=== PATIENT | male | born 1970 | race Hispanic/Latino ===

== ENCOUNTER 2016-10-26 00:18 | Emergency (ER) | payer OTHER ==
--- NOTE | 2016-10-26 02:20 | Ultrasound Report ---
FINAL REPORT PROCEDURE: US TESTICULAR DOPPLER COMP TECHNIQUE: Real-time aclabrese-scale and color flow Doppler sonography in multiple planes of the scrotum, testicles, and epididymes was performed. Velocity spectral waveform analysis Doppler imaging of the arterial inflow and venous outflow of the testicles was performed with image documentation. CPT 98207 and 11551 HISTORY: PAIN COMPARISON: No prior studies are available for comparison. FINDINGS: RIGHT TESTICLE: Size: 4.3 x 1.8 x 2.9 cm . Appearance: Normal size and echotexture . Arterial blood flow: Normal spectral waveforms, flow velocities and color flow images.. Venous blood flow: Normal spectral waveforms and color flow images. Right epididymis: Normal size and echotexture . Hydrocele: None . LEFT TESTICLE Size: 4 x 2.2 x 2.6 cm . Appearance: Normal size and echotexture . Arterial blood flow: Normal spectral waveforms, flow velocities and color flow images.. Venous blood flow: Normal spectral waveforms and color flow images. Leftepididymis: Normal size and echotexture . Hydrocele: None . IMPRESSION: Normal Examination
[2016-10-26 02:57] LABS: Hematocrit 44.6 % (35.5-45.6); Mean Corpuscular HGB Conc 34 % (32-34); Mean Corpuscular Hemoglobin 29 pg (28-32); Mean Corpuscular Volume 87 fl (84-94); Platelet Count 247 K/mm3 (140-440); Red Blood Count 5.12 M/mm3 (3.65-5.03); Red Cell Distribution Width 14.5 % (13.2-15.2); White Blood Count 11.9 K/mm3 (4.5-11.0)
[2016-10-26 03:53] LABS: Alanine Aminotransferase 20 units/L (7-56); Albumin 4.5 g/dL (3.9-5); Albumin/Globulin Ratio 1.6 %; Alkaline Phosphatase 72 units/L (35-129); Anion Gap 19 mmol/L; BUN/Creatinine Ratio 21.66; Bilirubin,Total 0.4 mg/dL (0.1-1.2); Blood Urea Nitrogen 13 mg/dL (9-20); Calcium 9.7 mg/dL (8.4-10.2); Carbon Dioxide 25 mmol/L (22-30); Chloride 98.7 mmol/L (98-107); Glucose 100 mg/dL (75-100); Lipase 16 units/L (13-60); Potassium 3.8 mmol/L (3.6-5.0); Sodium 139 mmol/L (137-145); Total Protein 7.3 g/dL (6.3-8.2)
[2016-10-26 06:01] LABS: Bacteria,Urine 1+ /HPF (Negative); Bilirubin,Urine NEG (Negative); Blood,Urine LG (Negative); Ketones,Urine NEG (Negative); Leukocyte Esterase,Urine NEG (Negative); Mucus,Urine 3+ /HPF; Nitrite,Urine NEG (Negative); Protein,Urine <15 mg/dL mg/dL (Negative); RBC,Urine > 182.0 /HPF (0.0-6.0); Urobilinogen,Urine < 2.0 mg/dL (<2.0)
[2016-10-26] MEDS ORDERED: DILAUDID ONE (09:58)
[2016-10-26] MEDS ORDERED: ZOFRAN IV ONE (10:16)
[2016-10-26] MEDS ORDERED: NACL 0.9% 1000 ML 1,000 ML IV ONE (10:16)
[2016-10-26] MEDS ORDERED: DILAUDID IV ONE (10:16)
--- NOTE | 2016-10-26 10:17 | Emergency Department Report ---
ED General Adult HPI - General Chief complaint: Urogenital-Male Stated complaint: BLOOD IN URINE/VOMITING Time Seen by Provider: 10/26/16 10:02 Source: patient, RN notes reviewed, old records reviewed Mode of arrival: Ambulatory Limitations: No Limitations - History of Present Illness Initial comments: This is a 46-year-old male. He is previously unknown to me. His local urologist is Dr. Jackson. The patient reports having a mechanical fall on September 14. Since then, the patient has been experiencing gross hematuria, slow urinary stream, straining to urinate, right-sided testicular pain, right flank pain, and erectile dysfunction. There is no extremity weakness. There is no extremity numbness. There is no dysuria. There is no history of UTI. Patient has had extensive outpatient workup as per documentation from his outpatient urology specialist. The patient recently had a retrograde pyelogram , which was found to be unremarkable, and also had a recent cystoscopy. As per documentation from his urologist, patient had essentially a negative digital rectal examination. Head and negative CT workup, had an ultrasound that demonstrated no hydronephrosis, was found to have back pain that was deemed to be more sacral/ hip than kidney, and patient was instructed to follow with orthopedic/ occupational therapy. Patient's pain has been constant since September. It increases with palpation or range of motion, and it decreases with rest. -: Gradual Location: abdomen, pelvis, genitals Quality: aching Consistency: intermittent Improves with: movement, rest Associated Symptoms: nausea/vomiting. denies: confusion, chest pain, cough, diaphoresis, fever/chills, headaches, loss of appetite, malaise, shortness of breath, syncope - Related Data Home Medications Medication Instructions Recorded Confirmed Last Taken Ciprofloxacin HCl [Ciprofloxacin 500 mg PO BID 10/16/16 10/21/16 10/18/16 TAB] HYDROcodone/ACETAMINOPHEN 1 tab PO TID PRN 10/16/16 10/21/16 10/20/16 [Hydrocodon-Acetaminophen 5-325] Mesalamine [Pentasa] 500 mg PO TID 10/16/16 10/21/16 2 Weeks Ago Prednisone [Prednisone] 1 tab PO DAILY 10/16/16 10/21/16 2 Weeks Ago traMADol [Ultram] 50 mg PO Q6HR PRN 10/16/16 10/21/16 1 Month Ago Previous Rx's Medication Instructions Recorded Last Taken Type HYDROcodone/APAP 5-325 [[place] 1 each PO Q4HR PRN #15 tablet 10/21/16 Unknown Rx 5-325 mg TAB] Sulfamethoxazole/Trimethoprim 1 each PO BID #6 tablet 10/21/16 Unknown Rx [Bactrim DS TAB] Ketorolac [Toradol] 10 mg PO Q6H PRN #20 tablet 10/26/16 Unknown Rx Ondansetron [Zofran Odt] 4 mg PO QID PRN #20 tab.rapdis 10/26/16 Unknown Rx oxyCODONE [Roxicodone] 5 mg PO Q6HR PRN #15 tablet 10/26/16 Unknown Rx Allergies Allergy/AdvReac Type Severity Reaction Status Date / Time gabapentin Allergy Hives Verified 10/16/16 10:46 Iodinated Contrast Media - Allergy Anaphylaxis Verified 10/18/16 10:01 IV Dye Penicillins Allergy Anaphylaxis Verified 10/16/16 10:45 procaine HCl [From Novocain] Allergy Anaphylaxis Verified 10/16/16 10:45 BEE STINGS Allergy Anaphylaxis Uncoded 10/16/16 10:46 ED Review of Systems ROS: Stated complaint: BLOOD IN URINE/VOMITING Other details as noted in HPI Constitutional: denies: fever Eyes: denies: eye discharge ENT: denies: epistaxis Respiratory: denies: cough Cardiovascular: denies: chest pain Gastrointestinal: abdominal pain Genitourinary: testicular pain Musculoskeletal: as per HPI Skin: denies: lesions Neurological: denies: headache Psychiatric: anxiety ED Past Medical Hx - Past Medical History Previous Medical History?: Yes Hx Hypertension: No Hx Heart Attack/AMI: (DENIES) Hx GERD: Yes Hx Liver Disease: No Hx Renal Disease: No Hx Seizures: No Hx HIV: No Additional medical history: CHRONS - Surgical History Past Surgical History?: Yes Hx Coronary Stent: Yes (2008) Hx Cholecystectomy: Yes - Social History Smoking Status: Current Every Day Smoker Substance Use Type: None - Medications Home Medications: Home Medications Medication Instructions Recorded Confirmed Last Taken Type Ciprofloxacin HCl [Ciprofloxacin 500 mg PO BID 10/16/16 10/21/16 10/18/16 History TAB] HYDROcodone/ACETAMINOPHEN 1 tab PO TID PRN 10/16/16 10/21/16 10/20/16 History [Hydrocodon-Acetaminophen 5-325] Mesalamine [Pentasa] 500 mg PO TID 10/16/16 10/21/16 2 Weeks Ago History Prednisone [Prednisone] 1 tab PO DAILY 10/16/16 10/21/16 2 Weeks Ago History traMADol [Ultram] 50 mg PO Q6HR PRN 10/16/16 10/21/16 1 Month Ago History HYDROcodone/APAP 5-325 [[place] 1 each PO Q4HR PRN #15 tablet 10/21/16 Unknown Rx 5-325 mg TAB] Sulfamethoxazole/Trimethoprim 1 each PO BID #6 tablet 10/21/16 Unknown Rx [Bactrim DS TAB] Ketorolac [Toradol] 10 mg PO Q6H PRN #20 tablet 10/26/16 Unknown Rx Ondansetron [Zofran Odt] 4 mg PO QID PRN #20 tab.rapdis 10/26/16 Unknown Rx oxyCODONE [Roxicodone] 5 mg PO Q6HR PRN #15 tablet 10/26/16 Unknown Rx ED Physical Exam - General Limitations: No Limitations General appearance: alert, in no apparent distress - Head Head exam: Present: atraumatic, normocephalic - Eye Eye exam: Present: normal appearance, EOMI. Absent: nystagmus - ENT ENT exam: Present: normal exam, normal orophraynx, mucous membranes moist, normal external ear exam - Neck Neck exam: Present: normal inspection, full ROM. Absent: tenderness, meningismus - Respiratory Respiratory exam: Present: normal lung sounds bilaterally. Absent: respiratory distress, wheezes, rales, rhonchi, stridor, decreased breath sounds - Cardiovascular Cardiovascular Exam: Present: regular rate, normal rhythm. Absent: bradycardia , tachycardia, irregular rhythm, systolic murmur, diastolic murmur, rubs, gallop - GI/Abdominal GI/Abdominal exam: Present: soft, tenderness (rlq, roght flank tenderness), normal bowel sounds. Absent: distended, guarding, rebound, rigid, pulsatile mass - Rectal Rectal exam: Present: deferred - exam: Present: normal inspection, testicular tenderness, other (there is normal testicular lie bilaterally. There is intact cremasteric reflex bilaterally. There is no testicular swelling. There is right-sided testicular tenderness.) External exam: Present: normal external exam, other (escorted by DELVIS Portillo) - Extremities Exam Extremities exam: Present: normal inspection, full ROM, normal capillary refill. Absent: tenderness, pedal edema, joint swelling, calf tenderness - Back Exam Back exam: Present: normal inspection, full ROM. Absent: tenderness, CVA tenderness (R), CVA tenderness (L), muscle spasm, paraspinal tenderness, vertebral tenderness - Neurological Exam Neurological exam: Present: alert, oriented X3, normal gait, other (Extraocular movements intact. Tongue midline. No facial droop. Facial sensation intact to light touch in the V1, V2, V3 distribution bilaterally. 5 and 5 strength in 4 extremities.. Sensation is intact to light touch in 4 extremities.). Absent : motor sensory deficit - Psychiatric Psychiatric exam: Present: normal affect, normal mood - Skin Skin exam: Present: warm, dry, intact, normal color. Absent: rash ED Course Vital Signs 10/26/16 10/26/16 10/26/16 00:58 09:00 10:41 Temperature 98.1 F Pulse Rate 88 115 H Respiratory 20 18 16 Rate Blood Pressure 160/120 Blood Pressure 141/90 [Left] O2 Sat by Pulse 99 99 Oximetry 10/26/16 10/26/16 10/26/16 11:10 11:11 11:30 Temperature Pulse Rate 84 Respiratory 16 16 16 Rate Blood Pressure Blood Pressure 124/76 [Left] O2 Sat by Pulse 99 98 Oximetry 10/26/16 12:13 Temperature Pulse Rate 74 Respiratory 16 Rate Blood Pressure Blood Pressure 131/75 [Left] O2 Sat by Pulse 98 Oximetry - Reevaluation(s) Reevaluation #1: 10/26/16 11:39 Differential diagnosis: Malignancy, urinary tract infection, referred nerve pain , appendicitis Assessment and plan: 46-year-old male with persistent hematuria, groin pain, testicular pain, abdominal pain since a fall on September 14. He has had an extensive outpatient urologic workup. He reports a history of negative CT of abdomen and pelvis. A testicular ultrasound performed in the ER demonstrated no acute abnormality that would require emergent surgical intervention. A repeat noncontrast CAT scan of the abdomen and pelvis demonstrated no evidence of fracture, normal appearing appendix, and unremarkable anatomy. His laboratory studies were reviewed, and were essentially unremarkable, his urinalysis was not consistent/diagnostic of urinary tract infection. The patient's pain was treated aggressively. He walks with a steady gait, and has no clinical indication of epidural compression syndrome. The case was discussed with the covering urology specialist, Dr. Lyles, who recommended that the patient follow up with outpatient orthopedics/physical therapy for evaluation for possible referred nerve pain, as he stated that the patient's symptomatology was suggestive of an ilioinguinal nerve pathology. He also recommended the patient discontinue the consumption of caffeine, alcohol , and spicy foods. The laboratory studies and diagnostics were discussed with the covering urologist, who indicated that the patient could follow up routinely with his outpatient urologist for further management of his hematuria, and urinary hesitancy. ED Medical Decision Making - Lab Data Result diagrams: 10/26/16 02:43 10/26/16 02:43 Vital Signs 10/26/16 10/26/16 10/26/16 00:58 09:00 10:41 Temperature 98.1 F Pulse Rate 88 115 H Respiratory 20 18 16 Rate Blood Pressure 160/120 Blood Pressure 141/90 [Left] O2 Sat by Pulse 99 99 Oximetry 10/26/16 11:10 Temperature Pulse Rate Respiratory 16 Rate Blood Pressure Blood Pressure [Left] O2 Sat by Pulse 99 Oximetry Lab Results 10/26/16 10/26/16 10/26/16 Range/Units 02:43 02:43 Unknown WBC 11.9 H (4.5-11.0) K/mm3 RBC 5.12 H (3.65-5.03) M/mm3 Hgb 15.0 (11.8-15.2) gm/dl Hct 44.6 (35.5-45.6) % MCV 87 (84-94) fl MCH 29 (28-32) pg MCHC 34 (32-34) % RDW 14.5 (13.2-15.2) % Plt Count 247 (140-440) K/mm3 Lymph % (Auto) 29.7 (13.4-35.0) % [place] % (Auto) 5.5 (0.0-7.3) % Eos % (Auto) 2.0 (0.0-4.3) % Baso % (Auto) 1.0 (0.0-1.8) % Lymph # 3.5 (1.2-5.4) K/mm3 [place] # 0.7 (0.0-0.8) K/mm3 Eos # 0.2 (0.0-0.4) K/mm3 Baso # 0.1 (0.0-0.1) K/mm3 Seg Neutrophils % 61.8 (40.0-70.0) % Seg Neutrophils # 7.4 (1.8-7.7) K/mm3 Sodium 139 (137-145) mmol/L Potassium 3.8 (3.6-5.0) mmol/L Chloride 98.7 (98-107) mmol/L Carbon Dioxide 25 (22-30) mmol/L Anion Gap 19 mmol/L BUN 13 (9-20) mg/dL Creatinine 0.6 L (0.8-1.5) mg/dL Estimated GFR > 60 ml/min BUN/Creatinine Ratio 21.66 % Glucose 100 (75-100) mg/dL Calcium 9.7 (8.4-10.2) mg/dL Total Bilirubin 0.4 (0.1-1.2) mg/dL AST 14 (5-40) units/L ALT 20 (7-56) units/L Alkaline Phosphatase 72 (35-129) units/L Total Protein 7.3 (6.3-8.2) g/dL Albumin 4.5 (3.9-5) g/dL Albumin/Globulin Ratio 1.6 % Lipase 16 (13-60) units/L Urine Color Yellow (Yellow) Urine Turbidity Clear (Clear) Urine pH 6.0 (5.0-7.0) Ur Specific [place] 1.024 (1.003-1.030) Urine Protein <15 mg/dl (Negative) mg/dL Urine Glucose (UA) Neg (Negative) mg/dL Urine Ketones Neg (Negative) mg/dL Urine Blood Lg (Negative) Urine Nitrite Neg (Negative) Urine Bilirubin Neg (Negative) Urine Urobilinogen < 2.0 (<2.0) mg/dL Ur Leukocyte Esterase Neg (Negative) Urine WBC (Auto) 2.0 (0.0-6.0) /HPF Urine RBC (Auto) > 182.0 (0.0-6.0) /HPF U Epithel Cells (Auto) < 1.0 (0-13.0) /HPF Urine Bacteria (Auto) 1+ (Negative) /HPF Urine Mucus 3+ /HPF - Radiology Data Radiology results: report reviewed, image reviewed Noncontrast CT scan of the abdomen and pelvis negative for acute disease. Testicular ultrasound negative for torsion/epididymitis/acute disease Critical care attestation.: If time is entered above; I have spent that time in minutes in the direct care of this critically ill patient, excluding procedure time. ED Disposition Clinical Impression: Hematuria, Flank pain Disposition: DISCHARGED TO HOME OR SELFCARE Is pt being admited?: No Does the pt Need Aspirin: No Condition: Good Instructions: Lumbar Radiculopathy (ED) Additional Instructions: Take the pain medication, nausea medication as directed. Rest and avoid heavy lifting. Laboratory studies indicated the presence of blood in the urine. Follow-up through urology specialist within the next week for this. Avoid consumption of caffeine, alcohol, spicy foods. I specifically discuss her case with the covering urology specialist. They indicate that your pain and symptoms to be coming from a pinched nerve. Therefore, I also recommend that you follow-up with either outpatient orthopedics, or occupational therapies/physical medicine for further evaluation for possible pinched nerve pain. Rest and avoid heavy lifting. Avoid strenuous physical activity. Return to the ER right away with new pain worse pain, migration of pain, intractable nausea or vomiting, inability to tolerate liquid feeds, extremity weakness, extremity numbness. Please note that her blood pressure was somewhat elevated. This should also be followed by a primary care doctor within the next month. Long-term complications of hypertension/elevated blood pressure include stroke, heart attack, disability, , paralysis, permanent loss of quality of life. Dr. Kirby is a local information systems specialist. Dr Jackson is your urology specialist Prescriptions: Ketorolac [Toradol] 10 mg PO Q6H PRN #20 tablet PRN Reason: Pain Ondansetron [Zofran Odt] 4 mg PO QID PRN #20 tab.rapdis PRN Reason: Nausea oxyCODONE [Roxicodone] 5 mg PO Q6HR PRN #15 tablet PRN Reason: Pain Referrals: PRIMARY CARE, [Primary Care Provider] - 3-5 Days COLBY PERDUE MD [Staff Physician] - 3-5 Days ATTILA KIRBY MD [Staff Physician] - 3-5 Days
--- NOTE | 2016-10-26 11:23 | Cat Scan Report ---
CT OF THE ABDOMEN AND PELVIS WITHOUT CONTRAST HISTORY: Abdominal pain. TECHNIQUE: Helical CT without contrast. Sagittal and coronal reformatted images. FINDINGS: Within the limits of a noncontrast exam, the abdominal and pelvic viscera are within normal limits. The liver, biliary system, pancreas, spleen, kidneys, adrenal glands and bladder are unremarkable. Cholecystectomy changes are noted. The bowel loops are normal caliber and wall thickness. Normal appendix. The aorta is normal caliber. No ascites, bulky adenopathy or inflammatory changes. The lung bases are clear. Normal heart size. No suspicious bony lesion. IMPRESSION: Unremarkable noncontrast CT of the abdomen and pelvis.
[2016-10-26 12:14] VITALS: BP 131/75
== END 2016-10-26 12:14 | disposition home or self-care (01) ==
LOC: ED 00:18
DX: R31.9 Hematuria, unspecified (principal); R10.31 Right lower quadrant pain; K21.9 Gastro-esophageal reflux disease without esophagitis; F17.200 Nicotine dependence, unspecified, uncomplicated; Z90.49 Acquired absence of other specified parts of digestive tract; Z88.0 Allergy status to penicillin; Z91.041 Radiographic dye allergy status; Z91.030 Bee allergy status; Z88.8 Allergy status to other drugs, medicaments and biological substances
CPT/HCPCS: 36415; 74176; 80053; 81001; 83690; 85025; 93975; 96361; 96374; 96375; 99284; J1170; J2405; J7030

== ENCOUNTER 2016-12-06 06:37 | Emergency (ER) | payer BC ==
[2016-12-06 07:43] LABS: Basophils % (Auto) 0.7 % (0.0-1.8); Eosinophils % (Auto) 2.9 % (0.0-4.3); Hematocrit 44.4 % (35.5-45.6); Hemoglobin 15.1 gm/dl (11.8-15.2); Mean Corpuscular HGB Conc 34 % (32-34); Mean Corpuscular Hemoglobin 30 pg (28-32); Mean Corpuscular Volume 88 fl (84-94); Platelet Count 220 K/mm3 (140-440); Red Blood Count 5.04 M/mm3 (3.65-5.03); Red Cell Distribution Width 14.8 % (13.2-15.2); White Blood Count 8.8 K/mm3 (4.5-11.0)
[2016-12-06 07:56] LABS: Alanine Aminotransferase 23 units/L (7-56); Albumin 4.4 g/dL (3.9-5); Albumin/Globulin Ratio 1.7 %; Alkaline Phosphatase 69 units/L (35-129); Anion Gap 17 mmol/L; BUN/Creatinine Ratio 28.33; Bilirubin,Total 0.4 mg/dL (0.1-1.2); Blood Urea Nitrogen 17 mg/dL (9-20); Calcium 9.7 mg/dL (8.4-10.2); Carbon Dioxide 25 mmol/L (22-30); Chloride 99.3 mmol/L (98-107); Glucose 98 mg/dL (75-100); Lipase 12 units/L (13-60); Potassium 4.2 mmol/L (3.6-5.0); Sodium 137 mmol/L (137-145)
[2016-12-06 09:56] LABS: Bilirubin,Urine NEG (Negative); Blood,Urine LG (Negative); Ketones,Urine NEG (Negative); Leukocyte Esterase,Urine NEG (Negative); Nitrite,Urine NEG (Negative); Protein,Urine <15 mg/dL mg/dL (Negative); Urobilinogen,Urine < 2.0 mg/dL (<2.0)
[2016-12-06 10:27] LABS: RBC,Urine > 182.0 /HPF (0.0-6.0)
[2016-12-06] MEDS ORDERED: MORPHINE IV ONE ×3 (18:14→21:57)
[2016-12-06] MEDS ORDERED: NACL 0.9% 1000 ML 1,000 ML IV ONE (18:14)
[2016-12-06] MEDS ORDERED: TORADOL IV ONE (18:14)
[2016-12-06] MEDS ORDERED: ZOFRAN IV ONE (18:14)
--- NOTE | 2016-12-06 18:45 | Emergency Department Report ---
ED Male HPI - General Chief complaint: Urogenital-Male Stated complaint: ABD PAIN/BLOOD IN URINE Time Seen by Provider: 12/06/16 18:07 Source: patient Mode of arrival: Ambulatory Limitations: No Limitations - History of Present Illness Initial comments: PT c/o 2 days of hematuria. PT states he also has abd pain and n/v. PT states that he threw up 4-5 times today. PT states he does not have hx of kidney stones but states that he had hematuria after a groin injury in September. PT states that bleeding gradually resolved on it's own. PT denies testicle pain or swelling or recent injury. MD Complaint: other (hematuria ) Onset/Timin -: Gradual, days(s) Location: abdomen Severity: severe Severity scale (0 -10): 10 Quality: sharp Consistency: constant Improves with: none Worsens with: palpation blood in urine, nausea/vomiting. denies: discharge, swelling, dysuria, fever - Related Data Home Medications Medication Instructions Recorded Confirmed Last Taken Ciprofloxacin HCl [Ciprofloxacin 500 mg PO BID 10/16/16 10/21/16 10/18/16 TAB] HYDROcodone/ACETAMINOPHEN 1 tab PO TID PRN 10/16/16 10/21/16 10/20/16 [Hydrocodon-Acetaminophen 5-325] Mesalamine [Pentasa] 500 mg PO TID 10/16/16 10/21/16 2 Weeks Ago Prednisone [Prednisone] 1 tab PO DAILY 10/16/16 10/21/16 2 Weeks Ago traMADol [Ultram] 50 mg PO Q6HR PRN 10/16/16 10/21/16 1 Month Ago Previous Rx's Medication Instructions Recorded Last Taken Type HYDROcodone/APAP 5-325 [[place] 1 each PO Q4HR PRN #15 tablet 10/21/16 Unknown Rx 5-325 mg TAB] Sulfamethoxazole/Trimethoprim 1 each PO BID #6 tablet 10/21/16 Unknown Rx [Bactrim DS TAB] Ketorolac [Toradol] 10 mg PO Q6H PRN #20 tablet 11/06/16 Unknown Rx Ondansetron [Zofran Odt] 4 mg PO QID PRN #20 tab.rapdis 11/06/16 Unknown Rx oxyCODONE [Roxicodone TAB] 5 mg PO Q6HR PRN #15 tablet 11/06/16 Unknown Rx Allergies Allergy/AdvReac Type Severity Reaction Status Date / Time gabapentin Allergy Hives Verified 11/06/16 13:50 Iodinated Contrast Media - Allergy Anaphylaxis Verified 11/06/16 13:50 IV Dye Penicillins Allergy Anaphylaxis Verified 11/06/16 13:50 procaine HCl [From Novocain] Allergy Anaphylaxis Verified 11/06/16 13:50 tramadol AdvReac Hives Verified 11/06/16 13:50 BEE STINGS Allergy Anaphylaxis Uncoded 11/06/16 13:50 ED Review of Systems ROS: Stated complaint: ABD PAIN/BLOOD IN URINE Other details as noted in HPI Comment: All other systems reviewed and negative Constitutional: denies: chills, fever Gastrointestinal: abdominal pain, nausea, vomiting. denies: diarrhea Genitourinary: hematuria. denies: urgency, dysuria, testicular pain, testicular mass Musculoskeletal: denies: back pain ED Past Medical Hx - Past Medical History Previous Medical History?: Yes Hx Hypertension: No Hx Heart Attack/AMI: (DENIES) Hx GERD: Yes Hx Liver Disease: No Hx Renal Disease: No Hx Seizures: No Hx HIV: No Additional medical history: CROHNS. CAD - Surgical History Past Surgical History?: Yes Hx Coronary Stent: Yes (X 2 2008) Hx Cholecystectomy: Yes Additional Surgical History: BILATERAL INGUINAL HERNIA. BILATERAL KNEE. RIGHT SHOULDER. TONSILLECTOMY - Social History Smoking Status: Current Every Day Smoker Substance Use Type: None - Medications Home Medications: Home Medications Medication Instructions Recorded Confirmed Last Taken Type Ciprofloxacin HCl [Ciprofloxacin 500 mg PO BID 10/16/16 10/21/16 10/18/16 History TAB] HYDROcodone/ACETAMINOPHEN 1 tab PO TID PRN 10/16/16 10/21/16 10/20/16 History [Hydrocodon-Acetaminophen 5-325] Mesalamine [Pentasa] 500 mg PO TID 10/16/16 10/21/16 2 Weeks Ago History Prednisone [Prednisone] 1 tab PO DAILY 10/16/16 10/21/16 2 Weeks Ago History traMADol [Ultram] 50 mg PO Q6HR PRN 10/16/16 10/21/16 1 Month Ago History HYDROcodone/APAP 5-325 [[place] 1 each PO Q4HR PRN #15 tablet 10/21/16 Unknown Rx 5-325 mg TAB] Sulfamethoxazole/Trimethoprim 1 each PO BID #6 tablet 10/21/16 Unknown Rx [Bactrim DS TAB] Ketorolac [Toradol] 10 mg PO Q6H PRN #20 tablet 11/06/16 Unknown Rx Ondansetron [Zofran Odt] 4 mg PO QID PRN #20 tab.rapdis 11/06/16 Unknown Rx oxyCODONE [Roxicodone TAB] 5 mg PO Q6HR PRN #15 tablet 11/06/16 Unknown Rx ED Physical Exam - General Limitations: No Limitations General appearance: alert, in no apparent distress - Head Head exam: Present: atraumatic, normocephalic - Eye Eye exam: Present: normal appearance. Absent: conjunctival injection - ENT ENT exam: Present: normal exam, normal external ear exam - Neck Neck exam: Present: normal inspection, full ROM. Absent: tenderness - Respiratory Respiratory exam: Present: normal lung sounds bilaterally. Absent: respiratory distress, wheezes - Cardiovascular Cardiovascular Exam: Present: regular rate, normal rhythm, normal heart sounds - GI/Abdominal GI/Abdominal exam: Present: soft, tenderness (RLQ ), normal bowel sounds - Extremities Exam Extremities exam: Present: normal inspection, full ROM - Back Exam Back exam: Present: normal inspection, full ROM. Absent: tenderness, CVA tenderness (R), CVA tenderness (L) - Neurological Exam Neurological exam: Present: alert, oriented X3 - Psychiatric Psychiatric exam: Present: normal affect, normal mood - Skin Skin exam: Present: warm, dry, intact ED Course Vital Signs 12/06/16 12/06/16 12/06/16 06:45 18:29 18:58 Temperature 97.8 F 98 F Pulse Rate 80 87 Respiratory 18 18 16 Rate Blood Pressure 168/113 163/81 [Right] O2 Sat by Pulse 100 99 Oximetry 12/06/16 19:00 Temperature Pulse Rate Respiratory 16 Rate Blood Pressure [Right] O2 Sat by Pulse Oximetry - Reevaluation(s) Reevaluation #1: 12/06/16 21:[address] results. PT states his pain is starting to return. PT aware he will need to follow up with PCP. - Pulse Oximetry Interpretation Digit-Finger Initial Pulse Oximetry Readin Actions Taken: none ED Medical Decision Making - Lab Data Result diagrams: 12/06/16 07:07 12/06/16 07:07 - Radiology Data Radiology results: report reviewed CT abd/pelvis : nap intra abd process indeterminate lytic lesion @ the R femoral neck - Differential Diagnosis appendicitis, uti, renal colic, Critical care attestation.: If time is entered above; I have spent that time in minutes in the direct care of this critically ill patient, excluding procedure time. ED Disposition Clinical Impression: Hematuria Nausea & vomiting Qualifiers: Vomiting type: unspecified Vomiting Intractability: non-intractable Qualified Code(s): R11.2 - Nausea with vomiting, unspecified Abdominal pain Qualifiers: Abdominal location: right lower quadrant Qualified Code(s): R10.31 - Right lower quadrant pain Disposition: DISCHARGED TO HOME OR SELFCARE Is pt being admited?: No Does the pt Need Aspirin: No Condition: Stable Instructions: Acute Abdominal Pain (ED), Abdominal Pain (ED), Flank Pain (ED), Acute Hematuria (ED), Hypertension (ED) Additional Instructions: Follow up with PCP for follow up of incidental findings on CT report and BP Recheck Call your Urologist on Friday Referrals: COLBY PERDUE MD [Primary Care Provider] - 3-5 Days JOSHUA VELASQUEZ MD [Staff Physician] - 3-5 Days Time of Disposition: 22:04
--- NOTE | 2016-12-06 20:41 | Cat Scan Report ---
FINAL REPORT PROCEDURE: CT ABDOMEN PELVIS WO CON TECHNIQUE: Computerized axial tomography of the abdomen and pelvis was performed without intravenous contrast. This study is performed without intravascular contrast material and its sensitivity for abdominal and pelvic pathology, including neoplasms, inflammation, abscess, free fluid, thrombosis, arterial dissection and infarction, is reduced compared with a contrast enhanced study. HISTORY: hematuria, rlq tenderness COMPARISON: Prior CT scan abdomen and pelvis 11/06/2016 FINDINGS: Lower Lung bonner: No significant abnormality seen. Upper Abdomen: The gallbladder is surgically absent. The unenhanced images of the liver are unremarkable. The pancreas in the spleen as well as the adrenal glands show no abnormalities. Kidneys, Ureters and Urinary bladder: No abnormalities are visualized. No masses, calculi or hydronephrosis are seen. The ureters are unremarkable. No ureteral calculi are seen. The urinary bladder is unremarkable. Retroperitoneum: Atherosclerotic changes are seen in the abdominal aorta. No aneurysm is visualized. Nonspecific subcentimeter lymph nodes are seen in the retroperitoneum. No pathologically enlarged lymph nodes are identified. Bowel: No focal bowel abnormalities are identified. There is no evidence of bowel obstruction ascites or free intraperitoneal gas. Normal-appearing appendix is seen in the right lower quadrant. There is mild nonspecific gas distention of a few loops of small bowel in the left upper quadrant. Reproductive organs: Prostate gland does not appear to be enlarged. Other: Small sclerotic density is visualized in the right side of the symphysis pubis and also in the left ilium medially consistent with bone islands. There is a lytic lesion visualize medially in the right femoral neck extending into the intratrochanteric region of the right hip. This measures 1.2 x 2.8 x 1.0 centimeters. This has a sclerotic margin. This does not appear to be expansile. Subchondral cyst formation is seen in the roof of the left acetabulum. IMPRESSION: No evidence of renal or ureteral calculi. There is no evidence of hydronephrosis. Prior cholecystectomy. Small bone islands are visualized. Indeterminate lytic lesion seen right femoral neck extending into the intratrochanteric region of the right hip. Please see above measurements. Etiology is uncertain. This has the appearance of a nonossifying fibroma how however would be very uncommon in this patient's age group. Consider chondromyxoid fibroma and previously treated infection could present this manner. Enchondroma and area of fibrous dysplasia could present this manner. Metastatic disease is felt to be unlikely although not entirely excluded. Correlation with physical exam recommended. If clinically indicated a nuclear medicine bone scan could be obtained to evaluate for abnormal metabolic activity...
[2016-12-06 22:26] VITALS: BP 167/97
== END 2016-12-06 22:25 | disposition home or self-care (01) ==
LOC: ED 06:37
DX: R10.31 Right lower quadrant pain (principal); R11.2 Nausea with vomiting, unspecified; R31.9 Hematuria, unspecified
CPT/HCPCS: 36415; 74176; 80053; 81001; 83690; 85025; 96361; 96374; 96375; 96376; 99284; J1885; J2270; J2405; J7030

== ENCOUNTER 2016-12-26 07:04 | Emergency (ER) | payer BC ==
[2016-12-26 08:02] LABS: Basophils % (Auto) 0.5 % (0.0-1.8); Eosinophils % (Auto) 2.2 % (0.0-4.3); Hematocrit 45.4 % (35.5-45.6); Hemoglobin 15.2 gm/dl (11.8-15.2); Mean Corpuscular HGB Conc 33 % (32-34); Mean Corpuscular Hemoglobin 30 pg (28-32); Mean Corpuscular Volume 90 fl (84-94); Platelet Count 210 K/mm3 (140-440); Red Blood Count 5.07 M/mm3 (3.65-5.03); Red Cell Distribution Width 14.8 % (13.2-15.2); White Blood Count 11.9 K/mm3 (4.5-11.0)
[2016-12-26 08:18] LABS: Alanine Aminotransferase 17 units/L (7-56); Albumin 4.4 g/dL (3.9-5); Albumin/Globulin Ratio 1.8 %; Alkaline Phosphatase 70 units/L (35-129); Anion Gap 15 mmol/L; BUN/Creatinine Ratio 21.42; Bilirubin,Total 0.3 mg/dL (0.1-1.2); Blood Urea Nitrogen 15 mg/dL (9-20); Calcium 9.9 mg/dL (8.4-10.2); Carbon Dioxide 29 mmol/L (22-30); Chloride 103.9 mmol/L (98-107); Glucose 84 mg/dL (75-100); Lipase 14 units/L (13-60); Potassium 4.2 mmol/L (3.6-5.0); Sodium 144 mmol/L (137-145); Total Protein 6.9 g/dL (6.3-8.2)
[2016-12-26 08:32] LABS: Bacteria,Urine 1+ /HPF (Negative); Bilirubin,Urine NEG (Negative); Blood,Urine LG (Negative); Ketones,Urine NEG (Negative); Leukocyte Esterase,Urine NEG (Negative); Mucus,Urine FEW /HPF; Nitrite,Urine NEG (Negative); Protein,Urine <15 mg/dL mg/dL (Negative); Urobilinogen,Urine < 2.0 mg/dL (<2.0)
[2016-12-26 08:51] LABS: RBC,Urine > 182.0 /HPF (0.0-6.0)
[2016-12-26] MEDS ORDERED: ZOFRAN IM ONE (16:14)
[2016-12-26] MEDS ORDERED: MORPHINE IM ONE (16:14)
--- NOTE | 2016-12-26 16:21 | Emergency Department Report ---
HPI - General Chief Complaint: Abdominal Pain Time Seen by Provider: 12/26/16 15:15 - HPI HPI: Room 9 The patient is a 46-year-old male presenting with a chief complaint of abdominal pain and hematuria. The patient states this suffered an injury 2016 when he fell through a floor striking his testicles on a bar. The patient had hematuria or abdominal pain at the time and was followed by urologist. Patient had multiple studies including cystoscopy without identifying the source of his hematuria. Patient states hematuria had resolved over is restarted approximately 3 days ago. Patient denies dysuria but states is difficulty urinating. Patient complains of right-sided abdominal pain. Patient is to nausea vomiting but denies any history of fever. The patient gives his pain a score of 11/10 Location: Right abdomen Duration: [see above] Quality: Pain/sharp Severity: 11/10 Modifying factors: [see above] Context: [see above] Mode of transportation: [not driving] ED Past Medical Hx - Past Medical History Hx Heart Attack/AMI: (DENIES) Hx GERD: Yes Hx Kidney Stones: Yes Additional medical history: CROHNS. CAD - Surgical History Hx Coronary Stent: Yes (X 2 2008) Hx Cholecystectomy: Yes Additional Surgical History: BILATERAL INGUINAL HERNIA. BILATERAL KNEE. RIGHT SHOULDER. TONSILLECTOMY. KIDNEY STONES - Family History Family history: no significant - Social History Smoking Status: Current Every Day Smoker (one pack per day) Substance Use Type: None - Medications Home Medications: Home Medications Medication Instructions Recorded Confirmed Last Taken Type Mesalamine [Pentasa] 500 mg PO BID 10/16/16 12/26/16 12/26/16 History Aspirin EC [Aspirin Enteric Coated 81 mg PO DAILY 12/26/16 12/26/16 12/26/16 History TAB] HYDROcodone/APAP 5-325 [[place] 1 - 2 each PO Q6HR PRN #14 tablet 12/26/16 Unknown Rx 5/325] Ibuprofen [Motrin 800 MG tab] 800 mg PO Q8HR PRN #20 tablet 12/26/16 Unknown Rx Sulfamethoxazole/Trimethoprim 1 each PO BID #14 tablet 12/26/16 Unknown Rx [Bactrim DS TAB] ED Review of Systems ROS: Stated complaint: ABD PAIN/BLOOD IN URINE Other details as noted in HPI Comment: All other systems reviewed and negative Constitutional: denies: chills, fever Eyes: denies: eye pain, eye discharge, vision change ENT: denies: ear pain, throat pain Respiratory: denies: cough, shortness of breath, wheezing Cardiovascular: denies: chest pain, palpitations Endocrine: no symptoms reported Gastrointestinal: abdominal pain, nausea, vomiting Genitourinary: hematuria Musculoskeletal: denies: back pain, joint swelling, arthralgia Skin: denies: rash, lesions Neurological: denies: headache, weakness, paresthesias Psychiatric: denies: anxiety, depression Hematological/Lymphatic: denies: easy bleeding, easy bruising Physical Exam - Physical Exam Vital Signs: Vital Signs 12/26/16 12/26/16 07:25 14:57 Temperature 97.9 F 97.8 F Pulse Rate 77 82 Respiratory 17 18 Rate Blood Pressure 156/98 Blood Pressure 132/82 [Left] O2 Sat by Pulse 100 99 Oximetry Physical Exam: GENERAL: The patient is well-developed well-nourished male lying on stretcher appearing to be in mild discomfort. [] HEENT: Normocephalic. Atraumatic. Extraocular motions are intact. Patient has moist mucous membranes. NECK: Supple. Trachea midline CHEST/LUNGS: Clear to auscultation. There is no respiratory distress noted. HEART/CARDIOVASCULAR: Regular. There is no tachycardia. There is no gallop rub or murmur. ABDOMEN: Abdomen is soft, tenderness to palpation in the suprapubic, right upper quadrant and right lower quadrant.. Patient has normal bowel sounds. There is no abdominal distention. SKIN: There is no rash. There is no edema. There is no diaphoresis. NEURO: The patient is awake, alert, and oriented. The patient is cooperative. The patient has normal speech MUSCULOSKELETAL: There is no CVA tenderness. There is no evidence of acute injury. ED Course Vital Signs 12/26/16 12/26/16 07:25 14:57 Temperature 97.9 F 97.8 F Pulse Rate 77 82 Respiratory 17 18 Rate Blood Pressure 156/98 Blood Pressure 132/82 [Left] O2 Sat by Pulse 100 99 Oximetry ED Medical Decision Making - Lab Data Result diagrams: 12/26/16 07:39 12/26/16 07:39 Laboratory Tests 12/26/16 12/26/16 12/26/16 07:39 07:39 08:12 WBC 11.9 H RBC 5.07 H Hgb 15.2 Hct 45.4 MCV 90 MCH 30 MCHC 33 RDW 14.8 Plt Count 210 Lymph % (Auto) 18.7 Oliver % (Auto) 5.9 Eos % (Auto) 2.2 Baso % (Auto) 0.5 Lymph # 2.2 Oliver # 0.7 Eos # 0.3 Baso # 0.1 Seg Neutrophils % 72.7 H Seg Neutrophils # 8.7 H Sodium 144 Potassium 4.2 Chloride 103.9 Carbon Dioxide 29 Anion Gap 15 BUN 15 Creatinine 0.7 L Estimated GFR > 60 BUN/Creatinine Ratio 21.42 Glucose 84 Calcium 9.9 Total Bilirubin 0.3 AST 12 ALT 17 Alkaline Phosphatase 70 Total Protein 6.9 Albumin 4.4 Albumin/Globulin Ratio 1.8 Lipase 14 Urine Color Yellow Urine Turbidity Clear Urine pH 6.0 Ur Specific [place] 1.017 Urine Protein <15 mg/dl Urine Glucose (UA) Neg Urine Ketones Neg Urine Blood Lg Urine Nitrite Neg Urine Bilirubin Neg Urine Urobilinogen < 2.0 Ur Leukocyte Esterase Neg Urine WBC (Auto) 15.0 H Urine RBC (Auto) > 182.0 Urine Bacteria (Auto) 1+ Urine Mucus Few - Radiology Data Radiology results: report reviewed (CT abdomen and pelvis), image reviewed (CT abdomen and pelvis) ED abdomen pelvis (read by radiologist) sees-oh evidence for renal calculi or renal traction. No acute inflammatory process identified in the right lower quadrant. Appendix is normal except for a few incidental tiny punctate appendicoliths. Submucosal fat identified in the ascending and transverse colon which can be seen with inflammatory bowel disease but is nonspecific - Differential Diagnosis renal colic, pyelonephritis, UTI, appendicitis Critical care attestation.: If time is entered above; I have spent that time in minutes in the direct care of this critically ill patient, excluding procedure time. ED Disposition Clinical Impression: Abdominal pain, Hematuria, UTI (urinary tract infection) Disposition: DISCHARGED TO HOME OR SELFCARE Is pt being admited?: No Does the pt Need Aspirin: No Condition: Stable Instructions: Urinary Tract Infection in Men (ED), Acute Hematuria (ED) Additional Instructions: Return to the emergency department immediately should you develop worsening symptoms, fever, inability to tolerate food or liquid or any other concerns. Prescriptions: HYDROcodone/APAP 5-325 [[place] 5/325] 1 - 2 each PO Q6HR PRN #14 tablet PRN Reason: Pain Ibuprofen [Motrin 800 MG tab] 800 mg PO Q8HR PRN #20 tablet PRN Reason: Pain Sulfamethoxazole/Trimethoprim [Bactrim DS TAB] 1 each PO BID #14 tablet Referrals: PRIMARY CARE, [Primary Care Provider] - 3-5 Days COLBY PERDUE MD [Staff Physician] - 3-5 Days Time of Disposition: 18:21
--- NOTE | 2016-12-26 17:28 | Cat Scan Report ---
FINAL REPORT EXAM: CT ABDOMEN PELVIS WO CON HISTORY: right lower abdominal pain, hematuria TECHNIQUE: Unenhanced stone protocol CT of the abdomen and pelvis at 2.5 millimeter axial increments. Coronal and sagittal reconstruction was also performed. PRIORS: CT a/P 12/06/2016 FINDINGS: There is no evidence for renal calculi or hydronephrosis. No evidence for ureteral or bladder calculus is seen. No evidence for renal or bladder mass is noted. Otherwise, within the limits of a noncontrast exam, the liver, spleen, pancreas, and adrenal glands are unremarkable. Gallbladder has been surgically removed. No evidence for retroperitoneal or pelvic lymphadenopathy is seen. The small bowel loops have normal caliber. No fluid collection, inflammatory change, or free air is seen within the abdomen or pelvis. Calcification of a normal sized aorta is present. The appendix is normal in size but contains incidental small hyperdense foci, probably tiny appendicoliths. No surrounding inflammation is seen. The ascending and proximal transverse colon demonstrate submucosal fat which is nonspecific but can be seen with inflammatory bowel disease. Within the pelvis, the prostate is normal. Images through the upper abdomen include the lung bases which are expanded and clear. Bony structures show 2 stable lytic foci in the medial intertrochanteric aspect of the right proximal femur and in the left superior acetabulum. These both have a well-defined sclerotic border suggesting a benign etiology. Two punctate sclerotic foci in the left ilium and right symphysis pubis are stable, probably incidental bone islands. IMPRESSION: 1. No evidence for renal calculi or renal obstruction. 2. No acute inflammatory process identified in the right lower quadrant. The appendix is normal except for a few incidental tiny punctate appendicoliths. 3. Submucosal fat identified in the ascending and transverse colon which can be seen with inflammatory bowel disease but is nonspecific
--- NOTE | 2016-12-26 17:33 | Admit Criteria Form ---
Admission Criteria Documentation: ABDOMINAL PAIN Clinical Indications for Admission to Inpatient Care (Place 'X' for any and all applicable criteria): Admission is indicated for ANY ONE of the following(1)(2)(3)(4)(5): [X ]I. Inpatient admission required rather than observation care (Also use Abdominal Pain: Observation Care, as appropriate) because of ANY ONE of the following: [X ]a) Severe pain requiring acute inpatient management [ ]b) Identification of etiology/finding that requires inpatient care (eg, aortic dissection, free air) [ ]c) Absent bowel sounds with complete ileus(6) [ ]d) Suspected toxic megacolon [ ]e) Severe electrolyte abnormalities requiring inpatient care [ ]f) High fever or infection requiring inpatient admission as indicated by ANY ONE of following(7)(8): [ ] i) Appropriate outpatient or observational care antimicrobial treatment unavailable, not effective, or not feasible [ ] ii) Documented bacteremia [ ] iii) Temperature > 104.9 degrees F (oral) [ ] iv) T >103.1 F (oral) or < 96.8 F(rectal) that does not respond to all emergency treatment measures [ ]g) Signs of intestinal obstruction [B] [ ]h) Hemodynamic instability [ ]i) IV fluid to replace significant ongoing losses (greater than 3 L/m2 per day) (12)(13) [ ]j) Percutaneous or open drainage (eg, abscess, biliary tract ) procedures [ ]k) Parenteral nutrition regimen that must be implemented on inpatient basis [ ]l) Other condition,treatment or monitoring requiring inpatient admission. [ ]II. Peritoneal signs present [ ]III. Surgery needed that cannot be performed on an ambulatory basis. [ ]IV. Evaluation requires patient to not eat or drink for extended period ( eg, more than 24 hours). [ ]V. Contraindications and/or Inappropriate clinical situations for Observational Care in patients with abdominal pain, when ANY ONE of the following is required: [ ]a) Thorough evaluation is required to prevent catastrophic events due to delays in diagnosing (e.g.Mesenteric ischemia) 1,3 [ ]b) Patient with severe pathology or with chronic symptoms unlikely to improve in the ED stay (3) [ ]. General contraindications and/or Inappropriate clinical situations for Observational Care in patients with abdominal pain, when ANY ONE of the following is required: [ ]a) Prediction of prolongation of LOS based on ANY ONE of the following may be considered as a contraindication for observational care 2, 3, 4, 5, 6, 7, 8, 9, 10, 11 [ ]i) Age > 65 yrs. [ ]ii) Patient arriving by ambulance [ ]iii) Patient with high acuity [ ]iv) Patient requiring vital sign monitoring [ ]v) Patient on IV medication [ ]b) Systolic blood pressures 180mmHg 3,12 [ ]c) Patient with altered mental status including delirium and other alteration of consciousness, (3) [ ]d) Patient whose discharge disposition will be to a senior care home or rehabilitation home should not be managed in Emergency Department Observation Unit. CMS rule requires 3 days hospital stay before such placement.3,13 [ ]e) Patient with failure to thrive due to broad array of etiologies 3,16,17 [ ]f) Inability to ambulate 3,14 Extended stay beyond goal length of stay may be needed for(2)(3): [ ]a) Persistent abdominal pain with suspected intra-abdominal process [ ]b) Diagnosed condition requiring continued stay (e.g., pancreatitis, complicated diverticulitis) [ ]c) Surgery (e.g., colectomy) The original [employer] [facility] content created by [employer] has been revised. The portions of the content which have been revised are identified through the use of italic text or in bold, and [facility] has neither reviewed nor approved the modified material.All other unmodified content is copyright [employer] [facility]. Please see references footnoted in the original [employer] [facility] edition 2016 Admission Criteria Met: Yes
[2016-12-26 19:07] VITALS: BP 136/86
== END 2016-12-26 18:21 | disposition home or self-care (01) ==
LOC: ED 07:04
DX: N39.0 Urinary tract infection, site not specified (principal); R31.9 Hematuria, unspecified; R10.9 Unspecified abdominal pain; K21.9 Gastro-esophageal reflux disease without esophagitis; I25.10 Atherosclerotic heart disease of native coronary artery without angina pectoris; F17.200 Nicotine dependence, unspecified, uncomplicated
CPT/HCPCS: 36415; 74176; 80053; 81001; 83690; 85025; 96372; 99284; J2270; J2405

== ENCOUNTER 2017-02-15 02:39 | Emergency (ER) | payer BC ==
[2017-02-15] MEDS ORDERED: NACL 0.9% 1000 ML 1,000 ML IV ONE (02:51)
[2017-02-15] MEDS ORDERED: DILAUDID ONE (03:04)
[2017-02-15] MEDS ORDERED: DILAUDID IM ONE (03:09)
[2017-02-15 03:33] LABS: Basophils % (Auto) 0.6 % (0.0-1.8); Eosinophils % (Auto) 1.3 % (0.0-4.3); Hemoglobin 15.4 gm/dl (11.8-15.2); Mean Corpuscular HGB Conc 34 % (32-34); Mean Corpuscular Hemoglobin 30 pg (28-32); Mean Corpuscular Volume 88 fl (84-94); Platelet Count 227 K/mm3 (140-440); Red Blood Count 5.14 M/mm3 (3.65-5.03); Red Cell Distribution Width 14.3 % (13.2-15.2); White Blood Count 14.5 K/mm3 (4.5-11.0)
[2017-02-15 03:40] LABS: INR 1.05 (0.87-1.13)
[2017-02-15 03:41] LABS: Partial Thromboplastin Time 27.8 Sec. (24.2-36.6)
[2017-02-15 03:43] LABS: Alanine Aminotransferase 15 units/L (7-56); Albumin 4.4 g/dL (3.9-5); Albumin/Globulin Ratio 1.7 %; Alkaline Phosphatase 68 units/L (35-129); Blood Urea Nitrogen 14 mg/dL (9-20); Calcium 9.9 mg/dL (8.4-10.2); Carbon Dioxide 26 mmol/L (22-30); Glucose 136 mg/dL (75-100); Lipase 15 units/L (13-60)
[2017-02-15 03:44] LABS: Anion Gap 18 mmol/L; Chloride 101.3 mmol/L (98-107); Potassium 3.4 mmol/L (3.6-5.0); Sodium 142 mmol/L (137-145)
[2017-02-15 04:20] LABS: Bilirubin,Urine NEG (Negative)
[2017-02-15 04:21] LABS: Blood,Urine LG (Negative); Ketones,Urine TR mg/dL (Negative); Leukocyte Esterase,Urine TR (Negative); Mucus,Urine 1+ /HPF; Nitrite,Urine NEG (Negative); RBC,Urine > 182.0 /HPF (0.0-6.0); Urobilinogen,Urine < 2.0 mg/dL (<2.0)
[2017-02-15] MEDS ORDERED: ZOFRAN ODT ONE (05:01)
[2017-02-15] MEDS ORDERED: ZOFRAN ODT PO ONE (05:03)
--- NOTE | 2017-02-15 08:31 | Cat Scan Report ---
FINAL REPORT PROCEDURE: CT ABDOMEN PELVIS WO CON TECHNIQUE: Computerized axial tomography of the abdomen and pelvis was performed without intravenous contrast. This study is performed without intravascular contrast material and its sensitivity for abdominal and pelvic pathology, including neoplasms, inflammation, abscess, free fluid, thrombosis, arterial dissection and infarction, is reduced compared with a contrast enhanced study. HISTORY: pain, N V, GI Bleed COMPARISON: 12/26/2016 FINDINGS: Visualized lower thorax: Slight motion artifact. COPD.. Liver: Diffuse fatty infiltration of liver suspected. Spleen: Mildly prominent spleen. Gallbladder and biliary system: Metallic clips gallbladder fossa from prior cholecystectomy. Pancreas: Diffuse pancreatic atrophy. Adrenals: Normal. Kidneys: Normal. GI tract: Contrast within portions of large and small bowel and within normal caliber appendix. Decompression of the sigmoid colon with exaggerated mucosal wall thickening with slight cobblestone appearance indeterminate due to incomplete distension. No pericolonic stranding seen. Areas of large bowel narrowing and mucosal prominence may be related to spasm or other etiologies. Underlying malignancy is not excludable. Defer to colonoscopy in that regard.. Infiltrative malignancy or inflammatory change not excludable sigmoid colon. Inconclusive to exclude lobular mass in the distal sigmoid colon coronal 109 axial 147. Mildly prominent small bowel loops in the 2.5 centimeter range may reflect mild ileus Lymph nodes and mesentery: Scattered small mesenteric lymph nodes. Vasculature: Mild atherosclerosis. Bladder: Normal. Reproductive organs: Normal. Peritoneum: No free fluid. Musculoskeletal structures: No significant acute abnormality. Possible osteopenia. Slight patchy appearance of the femoral heads. Radiolucent peripherally sclerotic lesion in the proximal right femur with sharp zones of transition measuring 2.9 by 1.7 centimeters.. Tiny 3 millimeter sclerotic focus in the pubic symphysis area. Degenerative changes lower thoracic spine. Mild disc bulging L5-S1 greater than L4-5. Mild sacroiliitis Other: No free fluid or free air. If symptoms and or concern persist and/or patient is actively GI bleeding or with on going bleed consider nuclear medicine tagged red blood cell bleeding scan to further localize IMPRESSION: No definitive evidence of acute abdominal pelvic pathology or obstructive change Cobblestone mucosal prominence of the sigmoid colon, indeterminate. IBD, inflammatory bowel disease, entities not excludable. Mild sacroiliitis Normal caliber appendix Lobular mucosa including sigmoid colon as described above with underlying mass not excludable Followup advised as warranted
--- NOTE | 2017-02-15 08:54 | Emergency Department Report ---
ED General Adult HPI - General Chief complaint: GI Bleed Stated complaint: ABD PAIN, BLOOD IN URIAN AND STOOL, VOMITING Time Seen by Provider: 02/15/17 08:50 Source: patient Mode of arrival: Ambulatory Limitations: No Limitations - History of Present Illness Initial comments: Over the last 2 days patient has noted right upper quadrant discomfort, blood in his urine and some blood streaking in the stool. He said some nausea but no recent vomiting. He does not describe a significant amount of blood loss. He is seen by GI as well [facility]. He had a CT ordered prior to my arrival. Unfortunately this man has had some 5 CTs here alone this year. This CT was not ordered by me. It did reveal "no definite evidence of acute abdominal pathology or obstructive change. Cobblestone mucosal prominence of the sigmoid colon which was indeterminate ... Mild sacroileitis". -: days(s) Location: abdomen Radiation: non-radiation Quality: aching Consistency: intermittent Improves with: none Worsens with: none Associated Symptoms: denies other symptoms (except as above indicated) - Related Data Home Medications Medication Instructions Recorded Confirmed Last Taken Mesalamine [Pentasa] 500 mg PO BID 10/16/16 12/26/16 12/26/16 Aspirin EC [Aspirin Enteric Coated 81 mg PO DAILY 12/26/16 12/26/16 12/26/16 TAB] Previous Rx's Medication Instructions Recorded Last Taken Type HYDROcodone/APAP 5-325 [[place] 1 - 2 each PO Q6HR PRN #14 tablet 12/26/16 Unknown Rx 5/325] Ibuprofen [Motrin 800 MG tab] 800 mg PO Q8HR PRN #20 tablet 12/26/16 Unknown Rx Sulfamethoxazole/Trimethoprim 1 each PO BID #14 tablet 12/26/16 Unknown Rx [Bactrim DS TAB] HYDROcodone/APAP 5-325 [[place] 1 each PO Q6HR PRN #14 tablet 02/15/17 Unknown Rx 5/325] Nitrofurantoin [place]/M-Cryst 100 mg PO Q12HR #14 capsule 02/15/17 Unknown Rx [Macrobid CAP] Ondansetron [Zofran Odt] 4 mg PO Q6H PRN #7 tab.rapdis 02/15/17 Unknown Rx Allergies Allergy/AdvReac Type Severity Reaction Status Date / Time gabapentin Allergy Hives Verified 12/26/16 07:24 Iodinated Contrast Media - Allergy Anaphylaxis Verified 12/26/16 07:24 IV Dye Penicillins Allergy Anaphylaxis Verified 12/26/16 07:24 procaine HCl [From Novocain] Allergy Anaphylaxis Verified 12/26/16 07:24 tramadol AdvReac Hives Verified 12/26/16 07:24 BEE STINGS Allergy Anaphylaxis Uncoded 12/26/16 07:24 ED Review of Systems ROS: Stated complaint: ABD PAIN, BLOOD IN URIAN AND STOOL, VOMITING Other details as noted in HPI Constitutional: denies: chills, fever Eyes: denies: eye pain, eye discharge, vision change ENT: denies: ear pain, throat pain Respiratory: denies: cough, shortness of breath, wheezing Cardiovascular: denies: chest pain, palpitations Endocrine: no symptoms reported Gastrointestinal: as per HPI, abdominal pain, nausea. denies: vomiting, diarrhea Genitourinary: denies: urgency, dysuria Musculoskeletal: denies: back pain, joint swelling, arthralgia Skin: denies: rash, lesions Neurological: denies: headache, weakness, paresthesias Psychiatric: denies: anxiety, depression Hematological/Lymphatic: denies: easy bleeding, easy bruising ED Past Medical Hx - Past Medical History Previous Medical History?: Yes Hx Hypertension: No Hx Heart Attack/AMI: (DENIES) Hx GERD: Yes Hx Liver Disease: No Hx Renal Disease: No Hx Seizures: No Hx Kidney Stones: Yes Hx HIV: No Additional medical history: CROHNS. CAD - Surgical History Past Surgical History?: Yes Hx Coronary Stent: Yes (X 2 2008) Hx Cholecystectomy: Yes Additional Surgical History: BILATERAL INGUINAL HERNIA. BILATERAL KNEE. RIGHT SHOULDER. TONSILLECTOMY. KIDNEY STONES - Social History Smoking Status: Current Every Day Smoker Substance Use Type: None - Medications Home Medications: Home Medications Medication Instructions Recorded Confirmed Last Taken Type Mesalamine [Pentasa] 500 mg PO BID 10/16/16 12/26/16 12/26/16 History Aspirin EC [Aspirin Enteric Coated 81 mg PO DAILY 12/26/16 12/26/16 12/26/16 History TAB] HYDROcodone/APAP 5-325 [[place] 1 - 2 each PO Q6HR PRN #14 tablet 12/26/16 Unknown Rx 5/325] Ibuprofen [Motrin 800 MG tab] 800 mg PO Q8HR PRN #20 tablet 12/26/16 Unknown Rx Sulfamethoxazole/Trimethoprim 1 each PO BID #14 tablet 12/26/16 Unknown Rx [Bactrim DS TAB] HYDROcodone/APAP 5-325 [[place] 1 each PO Q6HR PRN #14 tablet 02/15/17 Unknown Rx 5/325] Nitrofurantoin [place]/M-Cryst 100 mg PO Q12HR #14 capsule 02/15/17 Unknown Rx [Macrobid CAP] Ondansetron [Zofran Odt] 4 mg PO Q6H PRN #7 tab.rapdis 02/15/17 Unknown Rx ED Physical Exam - General Limitations: No Limitations General appearance: alert, in no apparent distress - Head Head exam: Present: atraumatic, normocephalic - Eye Eye exam: Present: normal appearance - ENT ENT exam: Present: mucous membranes moist - Neck Neck exam: Present: normal inspection - Respiratory Respiratory exam: Present: normal lung sounds bilaterally. Absent: respiratory distress - Cardiovascular Cardiovascular Exam: Present: regular rate, normal rhythm. Absent: systolic murmur, diastolic murmur, rubs, gallop - GI/Abdominal GI/Abdominal exam: Present: soft, normal bowel sounds. Absent: distended, tenderness, guarding, rebound, rigid - Rectal Rectal exam: Present: deferred - Extremities Exam Extremities exam: Present: normal inspection - Back Exam Back exam: Present: normal inspection - Neurological Exam Neurological exam: Present: alert, oriented X3, CN II-XII intact. Absent: motor sensory deficit - Psychiatric Psychiatric exam: Present: normal affect, normal mood - Skin Skin exam: Present: warm, dry, intact, normal color. Absent: rash ED Course Vital Signs 02/15/17 02/15/17 02/15/17 02:47 08:33 08:52 Temperature 98.1 F 97.6 F 98.3 F Pulse Rate 100 H 84 74 Respiratory 20 20 20 Rate Blood Pressure 156/111 Blood Pressure 156/109 125/76 [Right] O2 Sat by Pulse 99 99 100 Oximetry - Reevaluation(s) Reevaluation #1: Patient was found in no distress. He has a CT that essentially shows no acute abdominal process. His abdominal exam is normal. He has minimal white count elevation which may be due to inflammatory bowel disease or UTI. His urine will be cultured. He will be placed on an antibiotic and referred to outpatient follow-up. 02/15/17 09:41 ED Medical Decision Making - Lab Data Result diagrams: 02/15/17 03:04 02/15/17 03:04 Laboratory Results - last 24 hr 02/15/17 02/15/17 02/15/17 03:04 03:04 03:04 WBC 14.5 H RBC 5.14 H Hgb 15.4 H Hct 45.0 MCV 88 MCH 30 MCHC 34 RDW 14.3 Plt Count 227 Lymph % (Auto) 20.2 [place] % (Auto) 5.3 Eos % (Auto) 1.3 Baso % (Auto) 0.6 Lymph # 2.9 [place] # 0.8 Eos # 0.2 Baso # 0.1 Seg Neutrophils % 72.6 H Seg Neutrophils # 10.5 H PT 13.6 INR 1.05 APTT 27.8 Sodium 142 Potassium 3.4 L Chloride 101.3 Carbon Dioxide 26 Anion Gap 18 BUN 14 Creatinine 1.0 Estimated GFR > 60 BUN/Creatinine Ratio 14.00 Glucose 136 H Calcium 9.9 Total Bilirubin 0.30 AST 14 ALT 15 Alkaline Phosphatase 68 Total Protein 7.0 Albumin 4.4 Albumin/Globulin Ratio 1.7 Lipase 15 Urine Color Urine Turbidity Urine pH Ur Specific [place] Urine Protein Urine Glucose (UA) Urine Ketones Urine Blood Urine Nitrite Urine Bilirubin Urine Urobilinogen Ur Leukocyte Esterase Urine WBC (Auto) Urine RBC (Auto) U Epithel Cells (Auto) Urine Mucus Blood Type Antibody Screen KATIE Antibody Screen 02/15/17 02/15/17 03:06 03:20 WBC RBC Hgb Hct MCV MCH MCHC RDW Plt Count Lymph % (Auto) [place] % (Auto) Eos % (Auto) Baso % (Auto) Lymph # [place] # Eos # Baso # Seg Neutrophils % Seg Neutrophils # PT INR APTT Sodium Potassium Chloride Carbon Dioxide Anion Gap BUN Creatinine Estimated GFR BUN/Creatinine Ratio Glucose Calcium Total Bilirubin AST ALT Alkaline Phosphatase Total Protein Albumin Albumin/Globulin Ratio Lipase Urine Color Yellow Urine Turbidity Slightly-cloudy Urine pH 6.0 Ur Specific [place] 1.026 Urine Protein 30 mg/dl Urine Glucose (UA) Neg Urine Ketones Tr Urine Blood Lg Urine Nitrite Neg Urine Bilirubin Neg Urine Urobilinogen < 2.0 Ur Leukocyte Esterase Tr Urine WBC (Auto) 34.0 H Urine RBC (Auto) > 182.0 U Epithel Cells (Auto) < 1.0 Urine Mucus 1+ Blood Type A NEGATIVE Antibody Screen TNR KATIE Antibody Screen Negative Critical care attestation.: If time is entered above; I have spent that time in minutes in the direct care of this critically ill patient, excluding procedure time. ED Disposition Clinical Impression: Abdominal pain Qualifiers: Abdominal location: right upper quadrant Qualified Code(s): R10.11 - Right upper quadrant pain Crohns disease Qualifiers: Gastrointestinal tract location: unspecified location Digestive disease complication type: unspecified complication Qualified Code(s): K50.919 - Crohn' s disease, unspecified, with unspecified complications UTI (urinary tract infection) Qualifiers: Urinary tract infection type: site unspecified Hematuria presence: with hematuria Qualified Code(s): N39.0 - Urinary tract infection, site not specified ; R31.9 - Hematuria, unspecified Disposition: TO HOME OR SELFCARE Is pt being admited?: No Does the pt Need Aspirin: No Condition: Stable Instructions: Crohn Disease (ED), Urinary Tract Infection in Men (ED), Abdominal Pain (ED) Additional Instructions: Follow-up with urologist and mobile architect. Return to the emergency department any acute change or problem. A urine culture will be ready in 2-3 days and physician follow-up on results. Rx as directed. Prescriptions: HYDROcodone/APAP 5-325 [[place] 5/325] 1 each PO Q6HR PRN #14 tablet PRN Reason: Pain Nitrofurantoin [place]/M-Cryst [Macrobid CAP] 100 mg PO Q12HR #14 capsule Ondansetron [Zofran Odt] 4 mg PO Q6H PRN #7 tab.rapdis PRN Reason: Nausea Referrals: PRIMARY CARE, [Primary Care Provider] - 3-5 Days [facility] [Provider Group] - 3-5 Days [facility] [Provider Group] - 3-5 Days Forms: Accompanied Note Time of Disposition: 09:46
[2017-02-15 09:14] VITALS: BP 125/76
[2017-02-15] MEDS ORDERED: NORCO 5/325 PO ONE (09:47)
== END 2017-02-15 09:55 | disposition home or self-care (01) ==
LOC: ED 02:39
DX: K50.919 Crohn's disease, unspecified, with unspecified complications (principal); N39.0 Urinary tract infection, site not specified; N31.9 Neuromuscular dysfunction of bladder, unspecified; R10.11 Right upper quadrant pain; K21.9 Gastro-esophageal reflux disease without esophagitis; I25.10 Atherosclerotic heart disease of native coronary artery without angina pectoris; F17.200 Nicotine dependence, unspecified, uncomplicated; Z90.49 Acquired absence of other specified parts of digestive tract; Z79.82 Long term (current) use of aspirin; Z88.0 Allergy status to penicillin; Z88.6 Allergy status to analgesic agent; Z91.030 Bee allergy status
CPT/HCPCS: 36415; 74176; 80053; 81001; 83690; 85025; 85610; 85730; 86850; 86900; 86901; 93005; 93010; 96372; 99284; J1170; Q0162

== ENCOUNTER 2017-03-04 09:18 | Emergency (ER) | payer BC ==
[2017-03-04 10:06] VITALS: BP 150/86
--- NOTE | 2017-03-04 10:06 | Emergency Department Report ---
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 Due to findings the following was ordered: xr ED Disposition for MSE Condition: Stable Referrals: PRIMARY CARE, [Primary Care Provider] - 3-5 Days
--- NOTE | 2017-03-04 10:56 | XRay Report ---
RIGHT SHOULDER: History: Right shoulder pain, injury. Routine views demonstrate normal bony and soft tissue structures with normal joint alignment of the shoulder. Mild degenerative changes are noted at the a.c. joint. IMPRESSION: No acute abnormality is appreciated.
--- NOTE | 2017-03-04 12:16 | Emergency Department Report ---
ED Upper Extremity Inj HPI - General Chief Complaint: Shoulder Injury Stated Complaint: RT SHOULDER PAIN Time Seen by Provider: 03/04/17 10:03 Source: patient Mode of arrival: Ambulatory Limitations: No Limitations - History of Present Illness Initial Comments: This is a 46-year-old male that presents with chronic shoulder pain. Patient stated has had surgery on the clavicular region as well as rotator cuff repair. 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 Patient denies any trauma to area. Denies popping sensation. Patient stated he usually takes "percocet" for pain but does not have any left and is requested for pain medication. Patient denies any numbness , tingling, joint swelling, joint redness, limited ROM, fever, chills, headache , stiff neck, CP, or SOB. MD Complaint: Injury to:: right, shoulder -: Gradual, days(s) (1) Other Extremity Injury: Shoulder: Right Other Injuries: none Place: work Severity scale (0 -10): 9 Improves With: none, medication (pain medication) Worsens With: none Associated Symptoms: denies other symptoms. denies: weakness, numbness, neck pain, suspects foreign body, nausea/vomiting, heard/felt popping sensat - Related Data Home Medications Medication Instructions Recorded Confirmed Last Taken Mesalamine [Pentasa] 500 mg PO BID 10/16/16 12/26/16 12/26/16 Aspirin EC [Aspirin Enteric Coated 81 mg PO DAILY 12/26/16 12/26/16 12/26/16 TAB] Previous Rx's Medication Instructions Recorded Last Taken Type HYDROcodone/APAP 5-325 [[place] 1 - 2 each PO Q6HR PRN #14 tablet 12/26/16 Unknown Rx 5/325] Ibuprofen [Motrin 800 MG tab] 800 mg PO Q8HR PRN #20 tablet 12/26/16 Unknown Rx Sulfamethoxazole/Trimethoprim 1 each PO BID #14 tablet 12/26/16 Unknown Rx [Bactrim DS TAB] HYDROcodone/APAP 5-325 [[place] 1 each PO Q6HR PRN #14 tablet 02/15/17 Unknown Rx 5/325] Nitrofurantoin [place]/M-Cryst 100 mg PO Q12HR #14 capsule 02/15/17 Unknown Rx [Macrobid CAP] Ondansetron [Zofran Odt] 4 mg PO Q6H PRN #7 tab.rapdis 02/15/17 Unknown Rx Ibuprofen [Motrin 600 MG tab] 600 mg PO Q8H PRN #15 tablet 03/04/17 Unknown Rx Allergies Allergy/AdvReac Type Severity Reaction Status Date / Time gabapentin Allergy Hives Verified 03/04/17 10:07 Iodinated Contrast Media - Allergy Anaphylaxis Verified 03/04/17 10:07 IV Dye Penicillins Allergy Anaphylaxis Verified 03/04/17 10:07 procaine HCl [From Novocain] Allergy Anaphylaxis Verified 03/04/17 10:07 tramadol AdvReac Hives Verified 03/04/17 10:07 BEE STINGS Allergy Anaphylaxis Uncoded 03/04/17 10:07 ED Review of Systems ROS: Stated complaint: RT SHOULDER PAIN Other details as noted in HPI Constitutional: denies: chills, fever Eyes: denies: eye pain, eye discharge, vision change ENT: denies: ear pain, throat pain Respiratory: denies: cough, shortness of breath, wheezing Cardiovascular: denies: chest pain, palpitations Endocrine: no symptoms reported Gastrointestinal: denies: abdominal pain, nausea, diarrhea Genitourinary: denies: urgency, dysuria Musculoskeletal: denies: back pain, joint swelling, arthralgia Skin: denies: rash, lesions Neurological: denies: headache, weakness, paresthesias Psychiatric: denies: anxiety, depression Hematological/Lymphatic: denies: easy bleeding, easy bruising ED Past Medical Hx - Past Medical History Hx Hypertension: No Hx Heart Attack/AMI: (DENIES) Hx GERD: Yes Hx Liver Disease: No Hx Renal Disease: No Hx Seizures: No Hx Kidney Stones: Yes Hx HIV: No Additional medical history: CROHNS. CAD - Surgical History Hx Coronary Stent: Yes (X 2 2008) Hx Cholecystectomy: Yes Additional Surgical History: BILATERAL INGUINAL HERNIA. BILATERAL KNEE. RIGHT SHOULDER. TONSILLECTOMY. KIDNEY STONES - Social History Smoking Status: Current Every Day Smoker Substance Use Type: Prescribed - Medications Home Medications: Home Medications Medication Instructions Recorded Confirmed Last Taken Type Mesalamine [Pentasa] 500 mg PO BID 10/16/16 12/26/16 12/26/16 History Aspirin EC [Aspirin Enteric Coated 81 mg PO DAILY 12/26/16 12/26/16 12/26/16 History TAB] HYDROcodone/APAP 5-325 [[place] 1 - 2 each PO Q6HR PRN #14 tablet 12/26/16 Unknown Rx 5/325] Ibuprofen [Motrin 800 MG tab] 800 mg PO Q8HR PRN #20 tablet 12/26/16 Unknown Rx Sulfamethoxazole/Trimethoprim 1 each PO BID #14 tablet 12/26/16 Unknown Rx [Bactrim DS TAB] HYDROcodone/APAP 5-325 [[place] 1 each PO Q6HR PRN #14 tablet 02/15/17 Unknown Rx 5/325] Nitrofurantoin [place]/M-Cryst 100 mg PO Q12HR #14 capsule 02/15/17 Unknown Rx [Macrobid CAP] Ondansetron [Zofran Odt] 4 mg PO Q6H PRN #7 tab.rapdis 02/15/17 Unknown Rx Ibuprofen [Motrin 600 MG tab] 600 mg PO Q8H PRN #15 tablet 03/04/17 Unknown Rx ED Physical Exam - General Limitations: No Limitations General appearance: alert, in no apparent distress - Head Head exam: Present: atraumatic, normocephalic, normal inspection - Eye Eye exam: Present: normal appearance, PERRL, EOMI. Absent: scleral icterus, conjunctival injection, nystagmus, periorbital swelling, periorbital tenderness Pupils: Present: normal accommodation - ENT ENT exam: Present: normal exam, normal orophraynx, mucous membranes moist, TM's normal bilaterally, normal external ear exam - Neck Neck exam: Present: normal inspection, full ROM. Absent: tenderness, meningismus, lymphadenopathy, thyromegaly - Respiratory Respiratory exam: Present: normal lung sounds bilaterally. Absent: respiratory distress, wheezes, rales, rhonchi, stridor - Cardiovascular Cardiovascular Exam: Present: regular rate, normal rhythm. Absent: systolic murmur, diastolic murmur, rubs, gallop - GI/Abdominal GI/Abdominal exam: Present: soft, normal bowel sounds. Absent: distended, tenderness, guarding, rebound, rigid, diminished bowel sounds - Rectal Rectal exam: Present: deferred - Extremities Exam Extremities exam: Present: normal inspection, full ROM, normal capillary refill. Absent: tenderness, pedal edema, joint swelling, calf tenderness - Expanded Upper Extremity Exam Right General: Present: normal inspection. Absent: laceration Shoulder Exam: Present: normal inspection, full ROM. Absent: tenderness, swelling, abrasion, laceration, ecchymosis, deformity, crepidus, dislocation, erythema, tenderness over AC joint Upper Arm exam: Present: normal inspection, full ROM. Absent: tenderness, swelling, abrasion, laceration, ecchymosis, deformity, crepidus, dislocation, erythema Elbow exam: Present: normal inspection, full ROM. Absent: tenderness, swelling , abrasion, laceration, ecchymosis, deformity, crepidus, dislocation, erythema, effusion, pain w/ pronation/supination, tenderness over radial head Forearm Wrist exam: Present: normal inspection, full ROM. Absent: tenderness, swelling, abrasion, laceration, ecchymosis, deformity, crepidus, dislocation, erythema, tenderness over anatomical snuff box, pain with axial thumb loading Hand Wrist exam: Present: normal inspection, full ROM. Absent: tenderness, swelling, abrasion, laceration, ecchymosis, deformity, crepidus, dislocation, erythema, amputation, nail avulsion, subungual hematoma Neuro motor exam: Present: wrist extension intact, thumb opposition intact, thumb IP flexion intact, thumb adduction intact, fingers 2-5 abduction intact Neurosensory exam: Present: 2-point discrimination, radial nerve intact, ulnar nerve intact, median nerve intact Vascular: Present: vascular compromise, normal capillary refill, radial pulse, brachial pulse, ulnar pulse - Back Exam Back exam: Present: normal inspection, full ROM. Absent: tenderness, CVA tenderness (R), CVA tenderness (L), muscle spasm, paraspinal tenderness, vertebral tenderness, rash noted - Neurological Exam Neurological exam: Present: alert, oriented X3, CN II-XII intact, normal gait, reflexes normal - Psychiatric Psychiatric exam: Present: normal affect, normal mood - Skin Skin exam: Present: warm, dry, intact, normal color. Absent: rash ED Course Vital Signs 03/04/17 03/04/17 10:02 12:25 Temperature 98.4 F Pulse Rate 94 H 78 Respiratory 17 16 Rate Blood Pressure 150/86 O2 Sat by Pulse 99 99 Oximetry ED Medical Decision Making - Medical Decision Making Ed course: This is a 46-year-old male that presents with chronic right shoulder pain 1- patient was examined by myself. Xray has been obtained with normal findings. No fx or dislocation. Dicated by radiologist. 2- patient received a shoulder immobilizer and was instructed to follow-up with orthopedic doctor in 3-5 days or if symptoms worsen such as numbness, tingling, joint swelling or joint redness return to emergency room as soon as possible. 3- patient received ibuprofen 800 mg by mouth in ED and was discharged with ibuprofen 600 mg by mouth. 4- at time time of discharge, the patient does not seem toxic or ill in appearance. No acute signs of distress noted. Patient agrees to discharge treatment plan of care. No further questions noted by the patient. Critical care attestation.: If time is entered above; I have spent that time in minutes in the direct care of this critically ill patient, excluding procedure time. ED Disposition Clinical Impression: Chronic shoulder pain Qualifiers: Laterality: right Qualified Code(s): M25.511 - Pain in right shoulder; G89.29 - Other chronic pain Disposition: - TO HOME OR SELFCARE Is pt being admited?: No Does the pt Need Aspirin: No Condition: Stable Instructions: Ibuprofen (By mouth), Shoulder Sprain (ED), RICE Therapy (ED) Additional Instructions: Follow-up with orthopedic doctor in 3-5 days or if symptoms worsen such as pus, drainage, joint redness, joint swelling, numbness, or tingling return to emergency room as soon as possible. Take ibuprofen as prescribed if needed for pain. Rest, ice, and elevate extremity. Prescriptions: Ibuprofen [Motrin 600 MG tab] 600 mg PO Q8H PRN #15 tablet PRN Reason: Pain Referrals: PRIMARY CAREMD [Primary Care Provider] - 3-5 Days ADRIEN SORTO MD [Staff Physician] - 3-5 Days [facility] [Outside] - 3-5 Days [facility] [Outside] - 3-5 Days Forms: Work/School Release Form(ED)
[2017-03-04] MEDS ORDERED: MOTRIN PO ONE (12:25)
== END 2017-03-04 12:34 | disposition home or self-care (01) ==
LOC: ED 09:18
DX: M25.511 Pain in right shoulder (principal); G89.29 Other chronic pain; K21.9 Gastro-esophageal reflux disease without esophagitis; F17.210 Nicotine dependence, cigarettes, uncomplicated; Z95.1 Presence of aortocoronary bypass graft; Z88.6 Allergy status to analgesic agent; Z88.0 Allergy status to penicillin; Z91.041 Radiographic dye allergy status; Z88.8 Allergy status to other drugs, medicaments and biological substances; Z91.030 Bee allergy status
CPT/HCPCS: 99283

== ENCOUNTER 2017-03-16 16:49 | Emergency (ER) | payer BC ==
[2017-03-16 20:53] VITALS: BP 157/98
[2017-03-16] MEDS ORDERED: TYLENOL #3 PO ONE (20:57)
[2017-03-16] MEDS ORDERED: CLEOCIN PO ONE (20:57)
--- NOTE | 2017-03-16 21:01 | Emergency Department Report ---
ED ENT HPI - General Chief complaint: Dental/Oral Stated complaint: GUM INFECTION/FEVER/NAUSEA/PAIN Time Seen by Provider: 03/16/17 20:45 Source: patient Mode of arrival: Ambulatory Limitations: No Limitations - History of Present Illness Initial comments: dental pain x 5 days s/p extraction # 14, pain since pt continue to smoke, complaint: tooth pain Onset/Timin -: days(s) Location: tooth # (14) Severity: moderate Severity scale (0 -10): 7 Quality: aching, sharp Consistency: constant Improves with: none Worsens with: none Context- Dental: history of dental caries, poor dental care, other (extraction 5 days ago ) - Related Data Home Medications Medication Instructions Recorded Confirmed Last Taken Mesalamine [Pentasa] 500 mg PO BID 10/16/16 12/26/16 12/26/16 Aspirin EC [Aspirin Enteric Coated 81 mg PO DAILY 12/26/16 12/26/16 12/26/16 TAB] Previous Rx's Medication Instructions Recorded Last Taken Type HYDROcodone/APAP 5-325 [[place] 1 - 2 each PO Q6HR PRN #14 tablet 12/26/16 Unknown Rx 5/325] Ibuprofen [Motrin 800 MG tab] 800 mg PO Q8HR PRN #20 tablet 12/26/16 Unknown Rx Sulfamethoxazole/Trimethoprim 1 each PO BID #14 tablet 12/26/16 Unknown Rx [Bactrim DS TAB] HYDROcodone/APAP 5-325 [[place] 1 each PO Q6HR PRN #14 tablet 02/15/17 Unknown Rx 5/325] Nitrofurantoin [place]/M-Cryst 100 mg PO Q12HR #14 capsule 02/15/17 Unknown Rx [Macrobid CAP] Ondansetron [Zofran Odt] 4 mg PO Q6H PRN #7 tab.rapdis 02/15/17 Unknown Rx Ibuprofen [Motrin 600 MG tab] 600 mg PO Q8H PRN #15 tablet 03/04/17 Unknown Rx Acetaminophen/Codeine [Tylenol 1 tab PO Q6H PRN #20 tab 03/16/17 Unknown Rx /Codeine # 3 tab] Chlorhexidine Mouthwash [Peridex] 15 ml MM BID #300 ml 03/16/17 Unknown Rx Clindamycin [Clindamycin CAP] 300 mg PO Q8H #30 cap 03/16/17 Unknown Rx Allergies Allergy/AdvReac Type Severity Reaction Status Date / Time gabapentin Allergy Hives Verified 03/04/17 10:07 Iodinated Contrast Media - Allergy Anaphylaxis Verified 03/04/17 10:07 IV Dye Penicillins Allergy Anaphylaxis Verified 03/04/17 10:07 procaine HCl [From Novocain] Allergy Anaphylaxis Verified 03/04/17 10:07 tramadol AdvReac Hives Verified 03/04/17 10:07 BEE STINGS Allergy Anaphylaxis Uncoded 03/04/17 10:07 ED Dental HPI - General Chief complaint: Dental/Oral Stated complaint: GUM INFECTION/FEVER/NAUSEA/PAIN Time Seen by Provider: 03/16/17 20:45 Source: patient Mode of arrival: Ambulatory Limitations: No Limitations - History of Present Illness Initial comments: toothache MD complaint: tooth pain Onset/Timin -: days(s) Severity: moderate Quality: aching, sharp Consistency: constant Improves with: none Worsens with: none Context- Dental: history of dental caries, poor dental care, other (dental extraction 5 days ago ) - Related Data Home Medications Medication Instructions Recorded Confirmed Last Taken Mesalamine [Pentasa] 500 mg PO BID 10/16/16 12/26/16 12/26/16 Aspirin EC [Aspirin Enteric Coated 81 mg PO DAILY 12/26/16 12/26/16 12/26/16 TAB] Previous Rx's Medication Instructions Recorded Last Taken Type HYDROcodone/APAP 5-325 [[place] 1 - 2 each PO Q6HR PRN #14 tablet 12/26/16 Unknown Rx 5/325] Ibuprofen [Motrin 800 MG tab] 800 mg PO Q8HR PRN #20 tablet 12/26/16 Unknown Rx Sulfamethoxazole/Trimethoprim 1 each PO BID #14 tablet 12/26/16 Unknown Rx [Bactrim DS TAB] HYDROcodone/APAP 5-325 [[place] 1 each PO Q6HR PRN #14 tablet 02/15/17 Unknown Rx 5/325] Nitrofurantoin [place]/M-Cryst 100 mg PO Q12HR #14 capsule 02/15/17 Unknown Rx [Macrobid CAP] Ondansetron [Zofran Odt] 4 mg PO Q6H PRN #7 tab.rapdis 02/15/17 Unknown Rx Ibuprofen [Motrin 600 MG tab] 600 mg PO Q8H PRN #15 tablet 03/04/17 Unknown Rx Acetaminophen/Codeine [Tylenol 1 tab PO Q6H PRN #20 tab 03/16/17 Unknown Rx /Codeine # 3 tab] Chlorhexidine Mouthwash [Peridex] 15 ml MM BID #300 ml 03/16/17 Unknown Rx Clindamycin [Clindamycin CAP] 300 mg PO Q8H #30 cap 03/16/17 Unknown Rx Allergies Allergy/AdvReac Type Severity Reaction Status Date / Time gabapentin Allergy Hives Verified 03/04/17 10:07 Iodinated Contrast Media - Allergy Anaphylaxis Verified 03/04/17 10:07 IV Dye Penicillins Allergy Anaphylaxis Verified 03/04/17 10:07 procaine HCl [From Novocain] Allergy Anaphylaxis Verified 03/04/17 10:07 tramadol AdvReac Hives Verified 03/04/17 10:07 BEE STINGS Allergy Anaphylaxis Uncoded 03/04/17 10:07 ED Review of Systems ROS: Stated complaint: GUM INFECTION/FEVER/NAUSEA/PAIN Other details as noted in HPI Constitutional: denies: chills, fever Eyes: denies: eye pain, eye discharge, vision change ENT: dental pain, other (toothache #13 ). denies: ear pain, throat pain, hearing loss, epistaxis Respiratory: denies: cough, shortness of breath, wheezing Cardiovascular: denies: chest pain, palpitations Endocrine: no symptoms reported Gastrointestinal: denies: abdominal pain, nausea, diarrhea Genitourinary: denies: urgency, dysuria Musculoskeletal: denies: back pain, joint swelling, arthralgia Skin: denies: rash, lesions Neurological: denies: headache, weakness, paresthesias Psychiatric: denies: anxiety, depression Hematological/Lymphatic: denies: easy bleeding, easy bruising ED Past Medical Hx - Past Medical History Hx Hypertension: No Hx Heart Attack/AMI: (DENIES) Hx GERD: Yes Hx Liver Disease: No Hx Renal Disease: No Hx Seizures: No Hx Kidney Stones: Yes Hx HIV: No Additional medical history: CROHNS. CAD - Surgical History Hx Coronary Stent: Yes (X 2 2008) Hx Cholecystectomy: Yes Additional Surgical History: BILATERAL INGUINAL HERNIA. BILATERAL KNEE. RIGHT SHOULDER. TONSILLECTOMY. KIDNEY STONES - Social History Smoking Status: Current Every Day Smoker Substance Use Type: None - Medications Home Medications: Home Medications Medication Instructions Recorded Confirmed Last Taken Type Mesalamine [Pentasa] 500 mg PO BID 10/16/16 12/26/16 12/26/16 History Aspirin EC [Aspirin Enteric Coated 81 mg PO DAILY 12/26/16 12/26/16 12/26/16 History TAB] HYDROcodone/APAP 5-325 [[place] 1 - 2 each PO Q6HR PRN #14 tablet 12/26/16 Unknown Rx 5/325] Ibuprofen [Motrin 800 MG tab] 800 mg PO Q8HR PRN #20 tablet 12/26/16 Unknown Rx Sulfamethoxazole/Trimethoprim 1 each PO BID #14 tablet 12/26/16 Unknown Rx [Bactrim DS TAB] HYDROcodone/APAP 5-325 [[place] 1 each PO Q6HR PRN #14 tablet 02/15/17 Unknown Rx 5/325] Nitrofurantoin [place]/M-Cryst 100 mg PO Q12HR #14 capsule 02/15/17 Unknown Rx [Macrobid CAP] Ondansetron [Zofran Odt] 4 mg PO Q6H PRN #7 tab.rapdis 02/15/17 Unknown Rx Ibuprofen [Motrin 600 MG tab] 600 mg PO Q8H PRN #15 tablet 03/04/17 Unknown Rx Acetaminophen/Codeine [Tylenol 1 tab PO Q6H PRN #20 tab 03/16/17 Unknown Rx /Codeine # 3 tab] Chlorhexidine Mouthwash [Peridex] 15 ml MM BID #300 ml 03/16/17 Unknown Rx Clindamycin [Clindamycin CAP] 300 mg PO Q8H #30 cap 03/16/17 Unknown Rx ED Physical Exam - General Limitations: No Limitations General appearance: alert, in no apparent distress - Head Head exam: Present: atraumatic, normocephalic - Eye Eye exam: Present: normal appearance - ENT ENT exam: Present: mucous membranes moist, TM's normal bilaterally, normal external ear exam - Expanded ENT Exam Expanded Teeth exam: Present: dental caries, fractured tooth # (14 moderate gum erythema mild swelling no discharge no focal abscess no facial swelling fracture versus retained root noted ), dental tenderness # (14) Throat exam: Positive: normal inspection. Negative: tonsillar erythema, tonsillomegaly, tonsillar exudate, R peritonsillar mass, L peritonsillar mass - Neck Neck exam: Present: normal inspection, full ROM. Absent: tenderness, lymphadenopathy, thyromegaly - Respiratory Respiratory exam: Present: normal lung sounds bilaterally. Absent: respiratory distress, wheezes, rhonchi, stridor - Cardiovascular Cardiovascular Exam: Present: regular rate, normal rhythm. Absent: systolic murmur, diastolic murmur, rubs, gallop - GI/Abdominal GI/Abdominal exam: Present: soft, normal bowel sounds - Rectal Rectal exam: Present: deferred - Extremities Exam Extremities exam: Present: normal inspection - Back Exam Back exam: Present: normal inspection - Neurological Exam Neurological exam: Present: alert, oriented X3, CN II-XII intact - Psychiatric Psychiatric exam: Present: normal affect, normal mood - Skin Skin exam: Present: warm, dry, intact, normal color. Absent: rash ED Course Vital Signs 03/16/17 03/16/17 18:29 20:53 Temperature 98.1 F Pulse Rate 91 H 87 Respiratory 20 18 Rate Blood Pressure 155/110 Blood Pressure 157/98 [Left] O2 Sat by Pulse 100 97 Oximetry ED Medical Decision Making - Medical Decision Making pt is a 46 y/o w/m s/p dental extraction 5 days ago who presents for dental pain left #14 , pain described as aching trobbing shooting, pt endors 20 pack yr alyse continue to smoke, there is no trismus , airway patent no swelling uvula midline no focal abscess no bleeding no drainage noted pt is tolerating po intake without difficulty pt to follow up with [facility] dental on in 3 days, plan : clindamycin po as pt allergic to pcn has tolerated pcn in past, pt request hydrocodone, will rx tylenol #3 as pt has tolerated in past without difficulty, peridex mouth wash bid , follow up with dental on friday as scheduled , pt verbalized agreement and understanding with discharge plan. Critical care attestation.: If time is entered above; I have spent that time in minutes in the direct care of this critically ill patient, excluding procedure time. ED Disposition Clinical Impression: Infected dental caries, Pain, dental Disposition: TO HOME OR SELFCARE Is pt being admited?: No Does the pt Need Aspirin: No Condition: Good Instructions: Dental Caries (ED), Toothache (ED) Additional Instructions: stop smoking, follow up with mobile dental service on friday as scheduled Prescriptions: Acetaminophen/Codeine [Tylenol /Codeine # 3 tab] 1 tab PO Q6H PRN #20 tab PRN Reason: pain Chlorhexidine Mouthwash [Peridex] 15 ml MM BID #300 ml Clindamycin [Clindamycin CAP] 300 mg PO Q8H #30 cap Referrals: PRIMARY CARE, [Primary Care Provider] - 3-5 Days Forms: Work/School Release Form(ED) Time of Disposition: 21:12
== END 2017-03-16 21:22 | disposition home or self-care (01) ==
LOC: ED 16:49
DX: K02.9 Dental caries, unspecified (principal); K21.9 Gastro-esophageal reflux disease without esophagitis; F17.210 Nicotine dependence, cigarettes, uncomplicated; Z79.82 Long term (current) use of aspirin; Z88.6 Allergy status to analgesic agent; Z88.0 Allergy status to penicillin; Z88.8 Allergy status to other drugs, medicaments and biological substances; Z91.041 Radiographic dye allergy status; Z95.1 Presence of aortocoronary bypass graft
CPT/HCPCS: 99282

== ENCOUNTER 2017-03-27 14:44 | Emergency (ER) | payer BC ==
[2017-03-27 15:19] LABS: Basophils % (Auto) 0.9 % (0.0-1.8); Eosinophils % (Auto) 1.3 % (0.0-4.3); Hematocrit 46.9 % (35.5-45.6); Hemoglobin 16.2 gm/dl (11.8-15.2); Mean Corpuscular HGB Conc 35 % (32-34); Mean Corpuscular Hemoglobin 31 pg (28-32); Mean Corpuscular Volume 88 fl (84-94); Platelet Count 252 K/mm3 (140-440); Red Blood Count 5.32 M/mm3 (3.65-5.03); Red Cell Distribution Width 14.6 % (13.2-15.2); White Blood Count 10.9 K/mm3 (4.5-11.0)
[2017-03-27 15:31] LABS: Bilirubin,Urine NEG (Negative); Blood,Urine LG (Negative); Ketones,Urine NEG (Negative); Leukocyte Esterase,Urine NEG (Negative); Mucus,Urine FEW /HPF; Nitrite,Urine NEG (Negative); Protein,Urine <15 mg/dL mg/dL (Negative); Urobilinogen,Urine < 2.0 mg/dL (<2.0)
[2017-03-27 15:54] LABS: Alanine Aminotransferase 18 units/L (7-56); Albumin 4.8 g/dL (3.9-5); Albumin/Globulin Ratio 1.9 %; Alkaline Phosphatase 74 units/L (35-129); Anion Gap 18 mmol/L; BUN/Creatinine Ratio 13.75; Blood Urea Nitrogen 11 mg/dL (9-20); Carbon Dioxide 26 mmol/L (22-30); Chloride 101.8 mmol/L (98-107); Glucose 92 mg/dL (75-100); Lipase 19 units/L (13-60); Potassium 4.2 mmol/L (3.6-5.0); Sodium 142 mmol/L (137-145); Total Protein 7.3 g/dL (6.3-8.2)
[2017-03-27] MEDS ORDERED: PERCOCET 5/325 PO ONE (22:44)
[2017-03-27 22:57] LABS: INR 1.03 (0.87-1.13)
[2017-03-27 22:58] LABS: Partial Thromboplastin Time 26.8 Sec. (24.2-36.6)
--- NOTE | 2017-03-27 23:08 | Cat Scan Report ---
FINAL REPORT PROCEDURE: CT ABDOMEN PELVIS WO CON TECHNIQUE: Computerized axial tomography of the abdomen and pelvis was performed without intravenous contrast. This study is performed without intravascular contrast material and its sensitivity for abdominal and pelvic pathology, including neoplasms, inflammation, abscess, free fluid, thrombosis, arterial dissection and infarction, is reduced compared with a contrast enhanced study. HISTORY: abdominal pain, epigastric COMPARISON: No prior studies are available for comparison. FINDINGS: Lower Lung bonner: No focal abnormality seen. Upper Abdomen: Gallbladder is surgically absent. The unenhanced images of the liver show no focal abnormalities. The adrenal glands and the pancreas as well as the spleen are unremarkable. Kidneys, Ureters and Urinary bladder: No abnormalities are seen. Retroperitoneum: Atherosclerotic changes are seen in the abdominal aorta. No aneurysm is visualized. Nonspecific subcentimeter lymph nodes are seen in the retroperitoneum. No pathologically enlarged lymph nodes are identified. Bowel: Mucosal thickening and mild bowel wall thickening appears to involve several loops of small bowel in the left upper quadrant extending into the left mid abdomen anterior laterally suggesting a nonspecific enteritis. These bowel loops are mildly fluid distended. Bowel loops otherwise are unremarkable. No evidence of bowel obstruction, ascites or free intraperitoneal gas. Normal-appearing appendix is seen in the right lower quadrant. Other: No acute bony abnormalities are identified. Stable lytic lesion with sclerotic margins visualized in the intratrochanteric region of the right hip. These remain well-defined with sharp margins and have a benign appearance small subchondral cysts are seen in the roof of the left acetabulum. IMPRESSION: Small bowel loop prominence with wall thickening and mucosal fold prominence as described in multiple loops of small bowel in the left side of the abdomen suggesting a nonspecific enteritis without evidence of bowel obstruction. Prior cholecystectomy. .
[2017-03-27] MEDS ORDERED: LEVAQUIN PO ONE (23:53)
[2017-03-27] MEDS ORDERED: DELTASONE PO ONE (23:53)
--- NOTE | 2017-03-27 23:56 | Emergency Department Report ---
ED Abdominal Pain HPI - General Chief Complaint: Abdominal Pain Stated Complaint: VOMITTING/DIARRHEA W/ BLOOD,ABD PAIN ,CHILLS , Time Seen by Provider: 03/27/17 21:46 Source: patient Mode of arrival: Ambulatory Limitations: No Limitations - History of Present Illness Initial Comments: 46-year-old male with past medical history of Crohn's disease presenting to ED complaining of abdominal pain. Patient states symptoms started yesterday, no inciting factor, pain is sharp, crampy, radiates to the entire abdomen. Patient states symptoms have been accompanied by episodes of vomiting initially food tinged however pt states he had several episodes and on the last episode he saw blood in emesis. Pt also states he has had bloody stools. Pt denies: fever/chills, chest pain. Pt states he was diagnosed with Crohn's however has been lost a GI follow-up. MD Complaint: abdominal pain -: Gradual, days(s) (1) Location: diffuse Radiation: LUQ, RUQ, LLQ, RLQ Severity scale (0 -10): 9 Quality: cramping Consistency: constant Improves With: nothing Worsens With: nothing Associated Symptoms: denies other symptoms, nausea, vomiting, hematemesis. denies: diarrhea, constipation, dysuria, melena, hematuria, anorexia - Related Data Home Medications Medication Instructions Recorded Confirmed Last Taken Mesalamine [Pentasa] 500 mg PO BID 10/16/16 03/27/17 03/26/17 08:00 Aspirin EC [Aspirin Enteric Coated 81 mg PO DAILY 12/26/16 03/27/17 03/27/17 08: 00 TAB] Clindamycin [Clindamycin CAP] 600 mg PO BID 03/27/17 03/27/17 03/27/17 08:00 Previous Rx's Medication Instructions Recorded Last Taken Type Ondansetron [Zofran Odt] 4 mg PO Q6H PRN #7 tab.rapdis 02/15/17 03/27/17 08:00 Rx Ciprofloxacin HCl [Ciprofloxacin 500 mg PO Q12H #20 tab 03/28/17 Unknown Rx TAB] Dicyclomine [Bentyl] 20 mg PO QID #20 bottle 03/28/17 Unknown Rx HYDROcodone/APAP 5-325 [[place] 1 each PO Q6HR PRN #5 tablet 03/28/17 Unknown Rx 5/325] Pantoprazole [Protonix] 40 mg PO QDAY #30 tablet 03/28/17 Unknown Rx predniSONE [Deltasone] 50 mg PO DAILY #5 tablet 03/28/17 Unknown Rx Allergies Allergy/AdvReac Type Severity Reaction Status Date / Time gabapentin Allergy Hives Verified 03/27/17 21:03 Iodinated Contrast Media - Allergy Anaphylaxis Verified 03/27/17 21:03 IV Dye Penicillins Allergy Anaphylaxis Verified 03/27/17 21:03 procaine HCl [From Novocain] Allergy Anaphylaxis Verified 03/27/17 21:03 tramadol AdvReac Hives Verified 03/27/17 21:03 BEE STINGS Allergy Anaphylaxis Uncoded 03/27/17 21:03 ED Review of Systems ROS: Stated complaint: VOMITTING/DIARRHEA W/ BLOOD,ABD PAIN ,CHILLS , Other details as noted in HPI Constitutional: denies: chills, fever Eyes: denies: eye pain, eye discharge, vision change ENT: denies: ear pain, throat pain Respiratory: denies: cough, shortness of breath, wheezing Cardiovascular: denies: chest pain, palpitations Endocrine: no symptoms reported Gastrointestinal: nausea, diarrhea, hematemesis. denies: abdominal pain, constipation, melena Genitourinary: denies: urgency, dysuria Musculoskeletal: denies: back pain, joint swelling, arthralgia Skin: denies: rash, lesions Neurological: denies: headache, weakness, paresthesias Psychiatric: denies: anxiety, depression Hematological/Lymphatic: denies: easy bleeding, easy bruising ED Past Medical Hx - Past Medical History Hx Hypertension: No Hx Heart Attack/AMI: (DENIES) Hx GERD: Yes Hx Liver Disease: No Hx Renal Disease: No Hx Seizures: No Hx Kidney Stones: Yes Hx HIV: No Additional medical history: CROHNS. CAD - Surgical History Hx Coronary Stent: Yes (X 2 2008) Hx Cholecystectomy: Yes Additional Surgical History: BILATERAL INGUINAL HERNIA. BILATERAL KNEE. RIGHT SHOULDER. TONSILLECTOMY. KIDNEY STONES - Social History Smoking Status: Current Every Day Smoker Substance Use Type: None - Medications Home Medications: Home Medications Medication Instructions Recorded Confirmed Last Taken Type Mesalamine [Pentasa] 500 mg PO BID 10/16/16 03/27/17 03/26/17 08:00 History Aspirin EC [Aspirin Enteric Coated 81 mg PO DAILY 12/26/16 03/27/17 03/27/17 08: 00 History TAB] Ondansetron [Zofran Odt] 4 mg PO Q6H PRN #7 tab.rapdis 02/15/17 03/27/17 08:00 Rx Clindamycin [Clindamycin CAP] 600 mg PO BID 03/27/17 03/27/17 03/27/17 08:00 History Ciprofloxacin HCl [Ciprofloxacin 500 mg PO Q12H #20 tab 03/28/17 Unknown Rx TAB] Dicyclomine [Bentyl] 20 mg PO QID #20 bottle 03/28/17 Unknown Rx HYDROcodone/APAP 5-325 [[place] 1 each PO Q6HR PRN #5 tablet 03/28/17 Unknown Rx 5/325] Pantoprazole [Protonix] 40 mg PO QDAY #30 tablet 03/28/17 Unknown Rx predniSONE [Deltasone] 50 mg PO DAILY #5 tablet 03/28/17 Unknown Rx ED Physical Exam - General Limitations: No Limitations General appearance: alert, in no apparent distress - Head Head exam: Present: atraumatic, normocephalic - Eye Eye exam: Present: normal appearance - ENT ENT exam: Present: mucous membranes moist - Neck Neck exam: Present: normal inspection - Respiratory Respiratory exam: Present: normal lung sounds bilaterally. Absent: respiratory distress - Cardiovascular Cardiovascular Exam: Present: regular rate, normal rhythm. Absent: systolic murmur, diastolic murmur, rubs, gallop - GI/Abdominal GI/Abdominal exam: Present: soft, normal bowel sounds, other (abdomen soft, no guarding, no rebound, no tenderness). 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 Absent: normal inspection - Extremities Exam Extremities exam: Present: normal inspection - Back Exam Back exam: Present: normal inspection - Neurological Exam Neurological exam: Present: alert, oriented X3 - Psychiatric Psychiatric exam: Present: normal affect, normal mood - Skin Skin exam: Present: warm, dry, intact, normal color. Absent: rash ED Course Vital Signs 03/27/17 03/27/17 03/27/17 15:00 21:03 21:06 Temperature 98.6 F Pulse Rate 110 H 87 Respiratory 17 20 16 Rate Blood Pressure 125/89 Blood Pressure 159/50 [Left] O2 Sat by Pulse 100 97 Oximetry - Reevaluation(s) Reevaluation #1: 03/27/17 23:56 Patient resting comfortably after Percocet and Zofran. ED Medical Decision Making - Lab Data Result diagrams: 03/27/17 15:05 03/27/17 15:05 - Radiology Data Radiology results: image reviewed CT abdomen and pelvis without contrast final impression: Small bowel loop prominence with wall thickening and mucosal fold prominence as described inmultiple loops of small bowel in the left side of the abdomen suggested a nonspecific enteritis without evidence of bowel obstruction. Prior cholecystectomy. Dr Yolanda ALVAREZ - Medical Decision Making 46-year-old male with past medical history of Crohn's disease presenting to ED complaining of abdominal pain and rectal bleeding. Patient states his symptoms have improved since being given meds in ED. I will discharge pt with medications that will cover pain and Chrons flare. Repeat abdominal exam soft, nontender. Patient well-appearing tolerating oral liquids in the ED. Patient agrees he stable discharge home and follow-up with gastroenterology. Patient verbalized understanding of return precautions. At this time and low suspicion for: Cholecystitis, acute appendicitis, diverticulitis, pancreatitis. Critical Care Time: No Critical care attestation.: If time is entered above; I have spent that time in minutes in the direct care of this critically ill patient, excluding procedure time. ED Disposition Clinical Impression: Abdominal pain as manifestation of blood transfusion reaction, Crohn disease, Enteritis Disposition: - TO HOME OR SELFCARE Is pt being admited?: No Does the pt Need Aspirin: No Condition: Stable Instructions: Crohn Disease (ED), Rectal Bleeding (ED) Prescriptions: Ciprofloxacin HCl [Ciprofloxacin TAB] 500 mg PO Q12H #20 tab Dicyclomine [Bentyl] 20 mg PO QID #20 bottle HYDROcodone/APAP 5-325 [[place] 5/325] 1 each PO Q6HR PRN #5 tablet PRN Reason: Pain Pantoprazole [Protonix] 40 mg PO QDAY #30 tablet predniSONE [Deltasone] 50 mg PO DAILY #5 tablet Referrals: PRIMARY CARE, [Primary Care Provider] - 3-5 Days SHANIA DAVIS MD [Staff Physician] - 2-3 Days SHELBY MASTERS MD [Staff Physician] - 2-3 Days Forms: Work/School Release Form(ED)
[2017-03-28 00:17] VITALS: BP 136/94
== END 2017-03-28 00:18 | disposition home or self-care (01) ==
LOC: ED 14:44
DX: T80.89XA Other complications following infusion, transfusion and therapeutic injection, initial encounter (principal); R10.9 Unspecified abdominal pain; K50.90 Crohn's disease, unspecified, without complications; K52.9 Noninfective gastroenteritis and colitis, unspecified; I10 Essential (primary) hypertension; K21.9 Gastro-esophageal reflux disease without esophagitis; F17.200 Nicotine dependence, unspecified, uncomplicated
CPT/HCPCS: 36415; 74176; 80053; 81001; 83690; 85025; 85610; 85730; 99284; J7512

== ENCOUNTER 2017-12-20 19:30 | Emergency (ER) | payer BC ==
[2017-12-20 20:17] LABS: Basophils # (Auto) 0.1 K/mm3 (0.0-0.1); Eosinophils # (Auto) 0.3 K/mm3 (0.0-0.4); Eosinophils % (Auto) 2.4 % (0.0-4.3); Hematocrit 45.9 % (35.5-45.6); Hemoglobin 15.6 gm/dl (11.8-15.2); Lymphocytes # (Auto) 3.6 K/mm3 (1.2-5.4); Lymphocytes % (Auto) 27.5 % (13.4-35.0); Mean Corpuscular HGB Conc 34 % (32-34); Mean Corpuscular Hemoglobin 30 pg (28-32); Mean Corpuscular Volume 87 fl (84-94); Monocytes # (Auto) 0.6 K/mm3 (0.0-0.8); Monocytes % (Auto) 4.8 % (0.0-7.3); Platelet Count 282 K/mm3 (140-440); Red Blood Count 5.29 M/mm3 (3.65-5.03)
[2017-12-20 20:31] LABS: Alanine Aminotransferase 23 units/L (7-56); Albumin 4.3 g/dL (3.9-5); BUN/Creatinine Ratio 16; Blood Urea Nitrogen 14 mg/dL (9-20); Calcium 9.5 mg/dL (8.4-10.2); Hemolysis Index 6; Lipase 15 units/L (13-60)
[2017-12-20 20:49] LABS: Bilirubin,Urine NEG (Negative); Blood,Urine LG (Negative); Color,Urine Yellow (Yellow); Mucus,Urine FEW /HPF; RBC,Urine > 182.0 /HPF (0.0-6.0); Urobilinogen,Urine < 2.0 mg/dL (<2.0)
[2017-12-21] MEDS ORDERED: DILAUDID IV PRN (04:45)
[2017-12-21] MEDS ORDERED: NACL 0.9% 1000 ML 1,000 ML IV ONE (04:45)
[2017-12-21] MEDS ORDERED: PROTONIX IV ONE (04:45)
[2017-12-21] MEDS ORDERED: ZOFRAN IV ONE ×2 (04:48→07:29)
--- NOTE | 2017-12-21 05:06 | Emergency Department Report ---
<SHAY JENSEN - Last Filed: 12/21/17 05:01> ED Abdominal Pain HPI - General Chief Complaint: Abdominal Pain Stated Complaint: ABDOMINAL PAIN,VOMITING,DIAHRRIA Time Seen by Provider: 12/21/17 04:40 Source: patient Mode of arrival: Ambulatory Limitations: No Limitations - History of Present Illness Initial Comments: 47-year-old man with 9-10 year history of Crohn's disease, presents with 2 day history of left mid abdominal pain with persistent nausea and vomiting, as well as 4-5 episodes of watery diarrhea per day. He has not had any fever chills or diaphoresis. Abdominal pain is steady and achy, with a waxing and waning crampy component to it, felt primarily in the left mid abdomen, but over the past day or so has also migrated to include the periumbilical area and mid right abdomen. He has had prior flares of Crohn's in the past, but this is typically associated with right-sided abdominal pain. He's had no prior surgeries on his abdomen for Crohn's. He's also had a past history of kidney stones, but these usually involve back pain, pain he has no back pain on either side. MD Complaint: abdominal pain -: days(s) Location: periumbilical, LLQ Radiation: RLQ Migration to: periumbilical Severity: moderate Severity scale (0 -10): 7 Quality: cramping, aching Improves With: nothing Worsens With: eating Associated Symptoms: nausea, vomiting, diarrhea. denies: fever, constipation - Related Data Home Medications Medication Instructions Recorded Confirmed Last Taken Mesalamine [Pentasa] 500 mg PO BID 10/16/16 03/27/17 03/26/17 08:00 Aspirin EC [Aspirin Enteric Coated 81 mg PO DAILY 12/26/16 03/27/17 03/27/17 08: 00 TAB] Clindamycin [Clindamycin CAP] 600 mg PO BID 03/27/17 03/27/17 03/27/17 08:00 Previous Rx's Medication Instructions Recorded Last Taken Type Ondansetron [Zofran Odt] 4 mg PO Q6H PRN #7 tab.rapdis 02/15/17 03/27/17 08:00 Rx Ciprofloxacin HCl [Ciprofloxacin 500 mg PO Q12H #20 tab 03/28/17 Unknown Rx TAB] Dicyclomine [Bentyl] 20 mg PO QID #20 bottle 03/28/17 Unknown Rx HYDROcodone/APAP 5-325 [Badger 1 each PO Q6HR PRN #5 tablet 03/28/17 Unknown Rx 5/325] Pantoprazole [Protonix] 40 mg PO QDAY #30 tablet 03/28/17 Unknown Rx predniSONE [Deltasone] 50 mg PO DAILY #5 tablet 03/28/17 Unknown Rx Ondansetron [Zofran Odt] 4 mg PO Q8HR PRN #14 tab.rapdis 12/21/17 Unknown Rx Prednisone [predniSONE (Renetta) ER 40 mg PO QDAY #40 tablet. 12/21/17 Unknown Rx TAB] Allergies Allergy/AdvReac Type Severity Reaction Status Date / Time gabapentin Allergy Hives Verified 03/27/17 21:03 Iodinated Contrast- Oral and Allergy Anaphylaxis Verified 03/27/17 21:03 IV Dye [Iodinated Contrast Media - IV Dye] Penicillins Allergy Anaphylaxis Verified 03/27/17 21:03 procaine HCl [From Novocain] Allergy Anaphylaxis Verified 03/27/17 21:03 tramadol AdvReac Hives Verified 03/27/17 21:03 BEE STINGS Allergy Anaphylaxis Uncoded 03/27/17 21:03 ED Review of Systems ROS: Stated complaint: ABDOMINAL PAIN,VOMITING,DIAHRRIA Other details as noted in HPI Constitutional: denies: chills, fever Eyes: denies: eye pain, eye discharge, vision change ENT: as per HPI Respiratory: denies: cough, shortness of breath, wheezing Cardiovascular: denies: chest pain, palpitations Endocrine: no symptoms reported Gastrointestinal: as per HPI, abdominal pain, nausea, vomiting, diarrhea Genitourinary: denies: urgency, dysuria Musculoskeletal: denies: back pain, joint swelling, arthralgia Skin: denies: rash, lesions Neurological: denies: headache, weakness, paresthesias Psychiatric: denies: anxiety, depression ED Past Medical Hx - Past Medical History Hx Hypertension: No Hx Heart Attack/AMI: (DENIES) Hx GERD: Yes Hx Liver Disease: No Hx Renal Disease: No Hx Seizures: No Hx Kidney Stones: Yes Hx HIV: No Additional medical history: CROHNS. CAD - Surgical History Hx Coronary Stent: Yes (X 2 2008) Hx Cholecystectomy: Yes Additional Surgical History: BILATERAL INGUINAL HERNIA. BILATERAL KNEE. RIGHT SHOULDER. TONSILLECTOMY. KIDNEY STONES - Social History Smoking Status: Current Every Day Smoker Substance Use Type: None - Medications Home Medications: Home Medications Medication Instructions Recorded Confirmed Last Taken Type Mesalamine [Pentasa] 500 mg PO BID 10/16/16 03/27/17 03/26/17 08:00 History Aspirin EC [Aspirin Enteric Coated 81 mg PO DAILY 12/26/16 03/27/17 03/27/17 08: 00 History TAB] Ondansetron [Zofran Odt] 4 mg PO Q6H PRN #7 tab.rapdis 02/15/17 03/27/17 08:00 Rx Clindamycin [Clindamycin CAP] 600 mg PO BID 03/27/17 03/27/17 03/27/17 08:00 History Ciprofloxacin HCl [Ciprofloxacin 500 mg PO Q12H #20 tab 03/28/17 Unknown Rx TAB] Dicyclomine [Bentyl] 20 mg PO QID #20 bottle 03/28/17 Unknown Rx HYDROcodone/APAP 5-325 [Badger 1 each PO Q6HR PRN #5 tablet 03/28/17 Unknown Rx 5/325] Pantoprazole [Protonix] 40 mg PO QDAY #30 tablet 03/28/17 Unknown Rx predniSONE [Deltasone] 50 mg PO DAILY #5 tablet 03/28/17 Unknown Rx Ondansetron [Zofran Odt] 4 mg PO Q8HR PRN #14 tab.rapdis 12/21/17 Unknown Rx Prednisone [predniSONE (Renetta) ER 40 mg PO QDAY #40 tablet. 12/21/17 Unknown Rx TAB] ED Physical Exam - General Limitations: No Limitations General appearance: alert, in distress ([id number], resting fairly comfortably on stretcher) - Head Head exam: Present: atraumatic, normocephalic - Eye Eye exam: Present: normal appearance - ENT ENT exam: Present: mucous membranes moist - Neck Neck exam: Present: normal inspection. Absent: tenderness - Respiratory Respiratory exam: Present: normal lung sounds bilaterally - Cardiovascular Cardiovascular Exam: Present: regular rate - GI/Abdominal GI/Abdominal exam: Present: tenderness (periumbilical, as well as left lower quadrant and right lower quadrant), guarding, hypoactive bowel sounds, other ( obese, somewhat pendulous). Absent: rebound - Rectal Rectal exam: Present: deferred - Extremities Exam Extremities exam: Present: normal inspection ED Course Vital Signs 12/20/17 12/21/17 12/21/17 19:36 02:04 02:06 Temperature 98.5 F 98.1 F Pulse Rate 99 H 109 H Respiratory 18 18 18 Rate Blood Pressure 155/94 Blood Pressure 140/94 [Right] O2 Sat by Pulse 95 97 97 Oximetry 12/21/17 12/21/17 05:00 08:02 Temperature Pulse Rate 90 78 Respiratory 16 Rate Blood Pressure Blood Pressure 140/98 124/70 [Right] O2 Sat by Pulse 100 Oximetry ED Medical Decision Making - Lab Data Result diagrams: 12/20/17 19:59 12/20/17 19:59 Critical care attestation.: If time is entered above; I have spent that time in minutes in the direct care of this critically ill patient, excluding procedure time. ED Disposition Clinical Impression: Abdominal pain, Crohns disease Disposition: - TO HOME OR SELFCARE Condition: Stable Instructions: Abdominal Pain (ED), Crohn Disease (ED) Prescriptions: Ondansetron [Zofran Odt] 4 mg PO Q8HR PRN #14 tab.rapdis PRN Reason: Nausea And Vomiting Prednisone [predniSONE (Renetta) ER TAB] 40 mg PO QDAY #40 tablet.dr Referrals: MELIA LIVE MD [Primary Care Provider] - 3-5 Days <EUGENIO TELLEZ - Last Filed: 12/21/17 08:59> ED Medical Decision Making - Lab Data Result diagrams: 12/20/17 19:59 12/20/17 19:59 ED Disposition Is pt being admited?: No
[2017-12-21 05:33] LABS: Alanine Aminotransferase 22 units/L (7-56); Albumin 4.1 g/dL (3.9-5); Lipase 14 units/L (13-60)
[2017-12-21 05:41] LABS: Bilirubin,Direct < 0.2 mg/dL (0-0.2)
[2017-12-21] MEDS ORDERED: SUBLIMAZE IV ONE (07:28)
[2017-12-21] MEDS ORDERED: ZOFRAN ONE (07:30)
--- NOTE | 2017-12-21 07:35 | Cat Scan Report ---
FINAL REPORT PROCEDURE: CT ABDOMEN PELVIS WO CON TECHNIQUE: Computerized axial tomography of the abdomen and pelvis was performed without intravenous contrast. This study is performed without intravascular contrast material and its sensitivity for abdominal and pelvic pathology, including neoplasms, inflammation, abscess, free fluid, thrombosis, arterial dissection and infarction, is reduced compared with a contrast enhanced study. HISTORY: abdominal pain, Crohns COMPARISON: 03/27/2017 FINDINGS: Visualized lower thorax: No significant abnormality. Liver: Normal size and attenuation. Spleen: Normal size and attenuation. Gallbladder and biliary system: There has been a cholecystectomy. The bile ducts are normal in caliber.. Pancreas: Normal. Adrenals: Normal. Kidneys: There are no kidney stones or ureteral stones. There is no hydronephrosis.. GI tract: There is no bowel obstruction, colitis or enteritis. The appendix is normal.. Lymph nodes and mesentery: Normal. Vasculature: Normal. Bladder: Normal. Reproductive organs: Normal. Peritoneum: There is no ascites or free air, abscess or adenopathy.. Musculoskeletal structures: No significant abnormality. Other: None. IMPRESSION: There has been a cholecystectomy. The bile ducts are normal in caliber.. There are no kidney stones or ureteral stones. There is no hydronephrosis.. There is no bowel obstruction, colitis or enteritis. The appendix is normal.. There is no ascites or free air, abscess or adenopathy.. .
[2017-12-21 08:02] VITALS: BP 124/70
--- NOTE | 2017-12-21 08:56 | Emergency Department Report ---
Blank Doc - Documentation Documentation: Patient is 47 years old male with history of Crohn's disease, patient presented to the ER complaining of abdominal pain , and he think this is usual Crohn's flareup. Patient stated that he is feeling much better. CT abdomen and pelvis reviewed as follows. Referring Physician: SHAY JENSEN Patient Name: MAHOGANY CONNELLY Date of : 1970 Sex: Male Report Date: 2017-12-21 Report Status: [place] [address] Cat Scan Report Signed Patient: MAHOGANY CONNELLY MR#: [id number] : 1970 Acct:[id number] Age/Sex: 47 / M ADM Date: 12/20/17 Loc: ED Attending Dr: Ordering Physician: SHAY JENSEN MD Date of Service: 12/21/17 Procedure(s): CT abdomen pelvis wo con Accession Number(s): [id number] cc: SHAY JENSEN MD FINAL REPORT PROCEDURE: CT ABDOMEN PELVIS WO CON TECHNIQUE: Computerized axial tomography of the abdomen and pelvis was performed without intravenous contrast. This study is performed without intravascular contrast material and its sensitivity for abdominal and pelvic pathology, including neoplasms, inflammation, abscess, free fluid, thrombosis, arterial dissection and infarction, is reduced compared with a contrast enhanced study. HISTORY: abdominal pain, Crohns COMPARISON: 03/27/2017 FINDINGS: Visualized lower thorax: No significant abnormality. Liver: Normal size and attenuation. Spleen: Normal size and attenuation. Gallbladder and biliary system: There has been a cholecystectomy. The bile ducts are normal in caliber.. Pancreas: Normal. Adrenals: Normal. Kidneys: There are no kidney stones or ureteral stones. There is no hydronephrosis.. GI tract: There is no bowel obstruction, colitis or enteritis. The appendix is normal.. Lymph nodes and mesentery: Normal. Vasculature: Normal. Bladder: Normal. Reproductive organs: Normal. Peritoneum: There is no ascites or free air, abscess or adenopathy.. Musculoskeletal structures: No significant abnormality. Other: None. IMPRESSION: There has been a cholecystectomy. The bile ducts are normal in caliber.. There are no kidney stones or ureteral stones. There is no hydronephrosis.. There is no bowel obstruction, colitis or enteritis. The appendix is normal.. There is no ascites or free air, abscess or adenopathy.. . Transcribed By: CO Dictated By: WHITNEY UNDERWOOD MD Electronically Authenticated By: WHITNEY UNDERWOOD MD Signed Date/Time: 12/21/17728 DD/ 8 TD/TT: 12/21/17728 I advised the patient follow up as his GI doctor. I will give him prednisone and some pain medicine and nausea medicine and I advised him to return to the ER if his symptoms are not improving.
== END 2017-12-21 09:10 | disposition home or self-care (01) ==
LOC: ED 19:30
DX: K50.90 Crohn's disease, unspecified, without complications (principal); R10.9 Unspecified abdominal pain; K21.9 Gastro-esophageal reflux disease without esophagitis; F17.200 Nicotine dependence, unspecified, uncomplicated
CPT/HCPCS: 36415; 74176; 80053; 80074; 81001; 83690; 85025; 96361; 96374; 96375; 96376; 99284; C9113; J1170; J2405; J3010; J7030